=== PATIENT | female | born 1940 | race Caucasian/White ===

== ENCOUNTER 2016-11-26 07:38 | Emergency (ER) | payer MEDICARE ==
[~2016-11-26] VITALS: Ht 157.5 cm; Wt 69.9 kg
[~2016-11-26 07:38] MED LIST: 1-ME1LIQ PO; AMOX500T PO; LASI20TA PO; LATA0.00 EACH EYE; MOBI15TA PO; TIMO0.5S29 EACH EYE
[2016-11-26 07:40] VITALS: BP 165/69; PULSE 62; RESP 16; TEMP 97.8; O2SAT 100
[2016-11-26] MEDS ORDERED: LATA0.002 EACH EYE (08:02)
[2016-11-26] MEDS ORDERED: AMLO5TAB2 PO (08:02)
[2016-11-26] MEDS ORDERED: MELO-1 PO (08:02)
[2016-11-26] MEDS ORDERED: TIMO5SOL EACH EYE (08:02)
[2016-11-26 08:07] LABS: BLOOD, URINE SMALL (NEG); GLUCOSE,URINE NEG (NEG); KETONE, URINE NEG (NEG); NITRITE,URINE NEG (NEG); PH, URINE 5.5 (5.0-8.5)
[2016-11-26 08:15] LABS: METHOD OF COLLECTION CLEAN CATCH; URINE COLOR STRAW (YELLW/STRAW)
[2016-11-26] MEDS ORDERED: KETOROLAC TROMETHAMINE 30 MG/ML (IVP) VIAL IVP ONE (08:15)
[2016-11-26] MEDS ORDERED: SODIUM CHLORIDE 0.9% FLUSH 5 ML FLUSH IVF PRN (08:15)
[2016-11-26 08:16] LABS: BACTERIA, URINE FEW /hpf; COMMENT (UR) CULTURE INDICATED; CULTURE IF INDICATED CULTURE INDICATED; RENAL EPITHELIAL CELLS 0-5 /hpf
[2016-11-26 08:25] VITALS: O2SAT 100
[2016-11-26 08:32] LABS: AUTOMATED NEUTROPHIL # 3.6 TH/MM3 (1.8-7.7); BASOPHIL % 0.8 % (0.0-2.0); EOSINOPHIL # 0.2 TH/MM3 (0-0.4); HEMATOCRIT 39.4 % (35.0-46.0); HEMO FLAGS DIFF FINAL; LYMPH % 23.6 % (9.0-44.0); LYMPHOCYTE # 1.3 TH/MM3 (1.0-4.8); MEAN CELL VOLUME 86.1 FL (80.0-100.0); MEAN CORPUSCULAR HEMOGLOBIN 28.6 PG (27.0-34.0); MEAN CORPUSCULAR HGB CONC 33.3 % (32.0-36.0); MONO % 7.7 % (0.0-8.0); NEUT % 64.9 % (16.0-70.0); PLATELET COUNT 145 TH/MM3 (150-450); RED BLOOD COUNT 4.57 MIL/MM3 (4.00-5.30); RED CELL DISTRIBUTION WIDTH 13.9 % (11.6-17.2); WHITE BLOOD COUNT 5.5 TH/MM3 (4.0-11.0)
[2016-11-26 09:11] LABS: POTASSIUM 3.1 MEQ/L (3.5-5.1)
--- NOTE | 2016-11-26 09:20 | PD ---
HPI Chief Complaint: Complaint Time Seen by Provider: 08:09 Travel History International Travel<30 days: No Contact w/Intl Traveler<30days: No Traveled to known affect area: No History of Present Illness HPI Patient is a 76-year-old female presents emergency department for evaluation of dysuria and suprapubic pain. Patient states that this happened fairly suddenly last night. Patient states she has a history of bladder surgery but cannot expand further on her previous surgery. Patient denies any fever denies any nausea vomiting diarrhea vaginal bleeding or vaginal discharge. She states she' s had some mild abrasion her left hip and wonders if it's been bleeding. States happened to her multiple times in the past and it feels just like every other urinary tract infection she's ever had. PFSH Past Medical History Arthritis: Yes Asthma: No Autoimmune Disease: No Blood Disorders: No Anxiety: Yes Depression: No Heart Rhythm Problems: No Cancer: Yes (Melanoma face) Cardiovascular Problems: Yes (htn on meds, [place]?) High Cholesterol: No Chemotherapy: No Chest Pain: No Congestive Heart Failure: No COPD: No Cerebrovascular Accident: No Diabetes: No Diminished Hearing: No Endocrine: Yes Gastrointestinal Disorders: Yes (PAIN) GERD: No Glaucoma: Yes Genitourinary: No Headaches: No Hepatitis: No Hiatal Hernia: No Hypertension: Yes Immune Disorder: No Implanted Vascular Access Dvce: No Kidney Stones: No Musculoskeletal: No Neurologic: No Psychiatric: No Reproductive: No Respiratory: No Immunizations Current: Yes Migraines: No Myocardial Infarction: No Radiation Therapy: No Renal Failure: No Seizures: No Sickle Cell Disease: No Sleep Apnea: No Thyroid Disease: Yes Ulcer: Yes (As child) Tetanus Vaccination: > 5 Years Influenza Vaccination: Yes ?: Not Menopausal: Yes Past Surgical History Abdominal Surgery: Yes (Cyst removal) AICD: No Appendectomy: Yes Arteriovenous Shunt: No Cardiac Surgery: No Cholecystectomy: Yes Ear Surgery: No Endocrine Surgery: No Eye Surgery: No Genitourinary Surgery: Yes (Bladder) Gynecologic Surgery: Yes (HYSTERECTOMY) Hysterectomy: Yes Insulin Pump: No Joint Replacement: No Neurologic Surgery: No Oral Surgery: No Pacemaker: No Thoracic Surgery: No Tonsillectomy: Yes Other Surgery: Yes Social History Alcohol Use: No Tobacco Use: No Substance Use: No Allergies-Medications (Allergen,Severity, Reaction): Coded Allergies: Compazine (Verified Allergy, Severe, Joint Pain, 2/7/17) PER PT, NECK GOT VERY STIFF FOR SEVERAL HOURS AFTER BEING GIVEN COMPAZINE DURING PREVIOUS HOSPITALIZATION. "My head goes up in the air." Iohexol (OMNIPAQUE) (Unverified Allergy, Severe, PT NEEDS PREMED, 11/26/16) PT UNSURE, BUT THINKS THAT SHE BROKE OUT IN A RASH Reported Meds & Prescriptions Reported Meds & Active Scripts Active Keflex (Cephalexin) 500 Mg Cap 500 Mg PO Q6H Reported Latanoprost Opth Drops (Latanoprost) 0.005% Drops 1 Drop EACH EYE HS Refrigerate until opened. Timolol Opth Drops 0.25 % Soln 1 Drop EACH EYE BID Meloxicam 15 Mg Tab 10 Mg PO DAILY Amlodipine (Amlodipine Besylate) 5 Mg Tab 5 Mg PO DAILY Review of Systems Except as stated in HPI: all other systems reviewed are Neg Physical Exam Narrative GENERAL: Well-developed well-nourished no apparent distress. Appears older than stated age. SKIN: Warm and dry. HEAD: Atraumatic. Normocephalic. EYES: Pupils equal and round. No scleral icterus. No injection or drainage. ENT: No nasal bleeding or discharge. Mucous membranes pink and moist. NECK: Trachea midline. No JVD. CARDIOVASCULAR: Regular rate and rhythm. No murmur appreciated. RESPIRATORY: No accessory muscle use. Clear to auscultation. Breath sounds equal bilaterally. GASTROINTESTINAL: Abdomen soft, mildly tender in the suprapubic area. No rebound no percussive tenderness., nondistended. Hepatic and splenic margins not palpable. MUSCULOSKELETAL: No obvious deformities. No clubbing. No cyanosis. No edema. NEUROLOGICAL: Awake and alert. No obvious cranial nerve deficits. Motor grossly within normal limits. Normal speech. PSYCHIATRIC: Appropriate mood and affect; insight and judgment normal. Data Data Last Documented VS Vital Signs Date Time Temp Pulse Resp B/P Pulse Ox O2 Delivery O2 Flow Rate FiO2 11/26/16 10:05 73 16 145/78 100 Room Air 11/26/16 07:40 97.8 Orders Urinalysis - C+S If Indicated (11/26/16 07:42) Complete Blood Count With Diff (11/26/16 08:10) Comprehensive Metabolic Panel (11/26/16 08:10) Iv Access Insert/Monitor (11/26/16 08:10) Ecg Monitoring (11/26/16 08:10) Oximetry (11/26/16 08:10) Sodium Chloride 0.9% Flush (Ns Flush) (11/26/16 08:15) Electrocardiogram (11/26/16 08:10) Ketorolac Inj (Toradol Inj) (11/26/16 08:15) Urine Culture (11/26/16 07:50) Cephalexin (Keflex) (11/26/16 10:15) Calcium Carbonate (Oscal) (11/26/16 10:15) Labs Laboratory Tests Test 11/26/16 11/26/16 11/26/16 06:30 07:50 08:57 White Blood Count 5.5 TH/MM3 Red Blood Count 4.57 MIL/MM3 Hemoglobin 13.1 GM/DL Hematocrit 39.4 % Mean Corpuscular Volume 86.1 FL Mean Corpuscular Hemoglobin 28.6 PG Mean Corpuscular Hemoglobin 33.3 % Concent Red Cell Distribution Width 13.9 % Platelet Count 145 TH/MM3 Mean Platelet Volume 10.7 FL Neutrophils (%) (Auto) 64.9 % Lymphocytes (%) (Auto) 23.6 % Monocytes (%) (Auto) 7.7 % Eosinophils (%) (Auto) 3.0 % Basophils (%) (Auto) 0.8 % Neutrophils # (Auto) 3.6 TH/MM3 Lymphocytes # (Auto) 1.3 TH/MM3 Monocytes # (Auto) 0.4 TH/MM3 Eosinophils # (Auto) 0.2 TH/MM3 Basophils # (Auto) 0.0 TH/MM3 CBC Comment DIFF FINAL Differential Comment Urine Collection Type CLEAN CATCH Urine Color STRAW Urine Turbidity CLEAR Urine pH 5.5 Urine Specific [place] 1.003 Urine Protein NEG mg/dL Urine Glucose (UA) NEG mg/dL Urine Ketones NEG mg/dL Urine Occult Blood SMALL Urine Nitrite NEG Urine Bilirubin NEG Urine Leukocyte Esterase MOD Urine RBC 4-9 /hpf Urine WBC 25-49 /hpf Urine Renal Epithelial Cells 0-5 /hpf Urine Bacteria FEW /hpf Microscopic Urinalysis Comment CULTURE INDICATED Urine Collection Time 07:50 Sodium Level 148 MEQ/L Potassium Level 3.1 MEQ/L Chloride Level 118 MEQ/L Carbon Dioxide Level 21.5 MEQ/L Anion Gap 9 MEQ/L Blood Urea Nitrogen 18 MG/DL Creatinine 0.46 MG/DL Estimat Glomerular Filtration 132 ML/MIN Rate Random Glucose 75 MG/DL Calcium Level 7.0 MG/DL Protein Corrected Calcium 7.9 MG/DL Total Bilirubin 0.5 MG/DL Aspartate Amino Transf 9 U/L (AST/SGOT) Alanine Aminotransferase 9 U/L (ALT/SGPT) Alkaline Phosphatase 51 U/L Total Protein 5.4 GM/DL Albumin 2.4 GM/DL MDM Medical Decision Making Medical Screen Exam Complete: Yes Emergency Medical Condition: Yes Interpretation(s) EKG shows normal sinus rhythm with a normal axis and normal R-wave progression. No concerning ST T changes. This normal EKG. Differential Diagnosis UTI, cystitis, pyonephritis, acute abdomen unlikely. Narrative Course Patient 76-year-old female presents emergency Department with suprapubic pain and dysuria. She does have a history of bladder surgery but cannot tell me what kind of surgery. This reason basic lab works are sent. She also appears older than stated age. Basic labs including CBC and BMP are within normal limits. UA does show evidence of urinary tract infection. Review of her previous urine culture shows sensitivity to cephalosporins. We'll start on Keflex 500 mg 4 times a day 7 days. Discussed with her need follow-up with a primary care physician return to ED criteria. Diagnosis Primary Impression: UTI (urinary tract infection) Qualified Code: N30.00 - Acute cystitis without hematuria Med/Other Pt SpecificInfo: Prescription(s) given Scripts Cephalexin (Keflex)500 Mg [id number] Mg PO Q6H #7 CAP Ref 0 Prov:Daron Duncan MD 11/26/16 Disposition: 01 DISCHARGE HOME Condition: Stable Daron Duncan MD Nov 26, 2016 09:19
[2016-11-26 09:58] LABS: BICARBONATE 21.5 MEQ/L (21.0-32.0); CALCIUM-PROTEIN CORRECTED 7.9 MG/DL (8.5-10.1); TOTAL BILIRUBIN ADULT 0.5 MG/DL (0.2-1.0)
[2016-11-26 10:05] VITALS: BP 145/78; PULSE 73; RESP 16; O2SAT 100
[2016-11-26] MEDS ORDERED: CEPH-460 PO (10:08)
[2016-11-26] MEDS ORDERED: CALCIUM CARBONATE 1.25 GM (CA 500 MG) TAB PO ONE (10:15)
[2016-11-26] MEDS ORDERED: CEPHALEXIN MONOHYDRATE 500 MG CAP PO ONE (10:15)
--- NOTE | 2016-11-26 17:26 | EKG ---
Date Performed: 11/26/2016 Time Performed: 08:21:50 PTAGE: 76 years EKG: Regular supraventricular rhythm Since previous tracing, no significant change noted Borderl ine ECG PREVIOUS TRACING : 06/18/2016 11.48 DOCTOR: Tyrone Ortiz Interpretating Date/Time 11/26/2016 17:26:10
== END 2016-11-26 10:15 | disposition home or self-care (01) ==
LOC: PHED 07:38
DX: N30.00 Acute cystitis without hematuria (principal); B96.89 Other specified bacterial agents as the cause of diseases classified elsewhere; I10 Essential (primary) hypertension
CPT/HCPCS: 80053; 81001; 85025; 87077; 87086; 87186; 93005; 96374; 99283; J1885

== ENCOUNTER 2017-07-19 08:34 | Emergency (ER) | payer MEDICARE ==
[~2017-07-19] VITALS: Ht 157.5 cm; Wt 71.0 kg
[~2017-07-19 08:34] MED LIST changes: -1-ME1LIQ PO; +AMLO5TAB2 PO; -AMOX500T PO; +CEPH-460 PO; -LASI20TA PO; -LATA0.00 EACH EYE; +LATA0.002 EACH EYE; +MELO-1 PO; -MOBI15TA PO; -TIMO0.5S29 EACH EYE; +TIMO5SOL EACH EYE
[2017-07-19 08:39] VITALS: BP 151/97; PULSE 72; RESP 16; TEMP 97.9; O2SAT 100
[2017-07-19] MEDS ORDERED: TIMO0.5S30 EACH EYE (09:26)
--- NOTE | 2017-07-19 09:46 | PD ---
HPI Chief Complaint: Skin Problem Time Seen by Provider: 09:32 Travel History International Travel<30 days: No Contact w/Intl Traveler<30days: No Traveled to known affect area: No History of Present Illness HPI This 77-year-old female is complaining of swelling and redness of her ankles. His been going on for several days. She has not been short of breath. She does say that on Friday and Friday of this week she had some chest pain and felt a little bit short of breath than. She has a history of hypertension. She does take Lasix. She has not had fever or chills. She has had cellulitis in the past. She has some itching at these site of this redness. She says that this is not painful PFSH Past Medical History Arthritis: Yes Asthma: No Autoimmune Disease: No Blood Disorders: No Anxiety: Yes Depression: No Heart Rhythm Problems: No Cancer: Yes (Melanoma face) Cardiovascular Problems: Yes (htn on meds, [place]?) High Cholesterol: No Chemotherapy: No Chest Pain: No Congestive Heart Failure: No COPD: No Cerebrovascular Accident: No Diabetes: No Diminished Hearing: No Endocrine: Yes Gastrointestinal Disorders: Yes (PAIN) GERD: No Glaucoma: Yes Genitourinary: No Headaches: No Hepatitis: No Hiatal Hernia: No Heparin Induced Thrombocytopen: No Hypertension: Yes Immune Disorder: No Implanted Vascular Access Dvce: No Kidney Stones: No Musculoskeletal: No Neurologic: No Psychiatric: No Reproductive: No Respiratory: No Immunizations Current: Yes Migraines: No Myocardial Infarction: No Radiation Therapy: No Renal Failure: No Seizures: No Sickle Cell Disease: No Sleep Apnea: No Thyroid Disease: Yes Ulcer: Yes (As child) Menopausal: Yes Past Surgical History Abdominal Surgery: Yes (Cyst removal) AICD: No Appendectomy: Yes Arteriovenous Shunt: No Cardiac Surgery: No Cholecystectomy: Yes Ear Surgery: No Endocrine Surgery: No Eye Surgery: No Genitourinary Surgery: Yes (Bladder) Gynecologic Surgery: Yes (HYSTERECTOMY) Hysterectomy: Yes Insulin Pump: No Joint Replacement: No Neurologic Surgery: No Oral Surgery: No Pacemaker: No Thoracic Surgery: No Tonsillectomy: Yes Other Surgery: Yes Social History Alcohol Use: No Tobacco Use: No Substance Use: No Allergies-Medications (Allergen,Severity, Reaction): Coded Allergies: iohexol (Unverified Allergy, Severe, PT NEEDS PREMED, 07/19/17) PT UNSURE, BUT THINKS THAT SHE BROKE OUT IN A RASH prochlorperazine (Unverified Allergy, Severe, Joint Pain, 07/19/17) PER PT, NECK GOT VERY STIFF FOR SEVERAL HOURS AFTER BEING GIVEN COMPAZINE DURING PREVIOUS HOSPITALIZATION. "My head goes up in the air." Reported Meds & Prescriptions Reported Meds & Active Scripts Active Reported Timolol Opth Drops 0.5 % Soln 1 Drop EACH EYE BID Latanoprost Opth Drops (Latanoprost) 0.005% Drops 1 Drop EACH EYE HS Refrigerate until opened. Meloxicam 15 Mg Tab 10 Mg PO DAILY Amlodipine (Amlodipine Besylate) 5 Mg Tab 5 Mg PO DAILY Review of Systems General / Constitutional: No: Fever, Chills Eyes: No: Diploplia, Blurred Vision HENT: No: Headaches Cardiovascular: Positive: Chest Pain or Discomfort (a few days ago) Respiratory: No: Cough, Shortness of Breath Gastrointestinal: No: Vomiting, Diarrhea Genitourinary: No: Urgency, Frequency Musculoskeletal: No: Myalgias Skin: Positive Rash Hematologic/Lymphatic: No: Easy Bruising Physical Exam Narrative GENERAL: Well-developed female SKIN: Focused skin assessment warm/dry. There is some mild redness of both lower extremities. The right is greater than the left. There are a few fine macular lesions HEAD: Atraumatic. Normocephalic. EYES: Pupils equal and round. No scleral icterus. No injection or drainage. ENT: No nasal bleeding or discharge. Mucous membranes pink and moist. NECK: Trachea midline. No JVD. CARDIOVASCULAR: Regular rate and rhythm. No murmur appreciated. RESPIRATORY: No accessory muscle use. Clear to auscultation. Breath sounds equal bilaterally. GASTROINTESTINAL: Abdomen soft, non-tender, nondistended. Hepatic and splenic margins not palpable. MUSCULOSKELETAL: No obvious deformities. No clubbing. No cyanosis. Bilateral pedal edema NEUROLOGICAL: Awake and alert. No obvious cranial nerve deficits. Motor grossly within normal limits. Normal speech. PSYCHIATRIC: Appropriate mood and affect; insight and judgment normal. Data Data Last Documented VS Vital Signs Date Time Temp Pulse Resp B/P (MAP) Pulse Ox O2 Delivery O2 Flow Rate FiO2 07/19/17 08:39 97.9 72 16 151/97 (115) 100 Orders Orders Electrocardiogram (07/19/17 09:39) Complete Blood Count With Diff (07/19/17 09:39) Basic Metabolic Panel (Bmp) (07/19/17 09:39) Troponin I (07/19/17 09:39) B-Type Natriuretic Peptide (07/19/17 09:39) Chest, Single Ap (07/19/17 09:39) Labs Laboratory Tests Test 07/19/17 10:15 White Blood Count 5.0 TH/MM3 Red Blood Count 4.39 MIL/MM3 Hemoglobin 12.5 GM/DL Hematocrit 39.0 % Mean Corpuscular Volume 88.9 FL Mean Corpuscular Hemoglobin 28.6 PG Mean Corpuscular Hemoglobin Concent 32.2 % Red Cell Distribution Width 14.3 % Platelet Count 141 TH/MM3 Mean Platelet Volume 9.5 FL Neutrophils (%) (Auto) 62.7 % Lymphocytes (%) (Auto) 22.6 % Monocytes (%) (Auto) 11.2 % Eosinophils (%) (Auto) 2.9 % Basophils (%) (Auto) 0.6 % Neutrophils # (Auto) 3.2 TH/MM3 Lymphocytes # (Auto) 1.1 TH/MM3 Monocytes # (Auto) 0.6 TH/MM3 Eosinophils # (Auto) 0.1 TH/MM3 Basophils # (Auto) 0.0 TH/MM3 CBC Comment DIFF FINAL Differential Comment Blood Urea Nitrogen 29 MG/DL Creatinine 0.71 MG/DL Random Glucose 115 MG/DL Calcium Level 9.5 MG/DL Sodium Level 139 MEQ/L Potassium Level 4.2 MEQ/L Chloride Level 107 MEQ/L Carbon Dioxide Level 25.3 MEQ/L Anion Gap 7 MEQ/L Estimat Glomerular Filtration Rate 80 ML/MIN Troponin I LESS THAN 0.02 NG/ML B-Type Natriuretic Peptide 37 PG/ML [facility] Medical Decision Making Medical Screen Exam Complete: Yes Emergency Medical Condition: Yes Medical Record Reviewed: Yes Differential Diagnosis Differential includes CHF, cellulitis, allergic reaction Narrative Course Chest x-ray is negative. Her white count is at 5000. Potassium is normal.) Recommend that she take Lasix daily. She has a prescription she does take it sporadically. I will also put on Keflex for 7 days Diagnosis Primary Impression: Bilateral cellulitis of lower leg Additional Instructions: Take Lasix daily for 7 days. Scripts Cephalexin (Keflex) 500 Mg Capsule 500 MG PO Q6H for Infection for 10 Days, #40 CAP 0 Refills Prov: Vasquez Montiel MD 07/19/17 Disposition: 01 DISCHARGE HOME Condition: Critical Vasquez Montiel MD Jul 19, 2017 09:46
--- NOTE | 2017-07-19 10:08 | RADRPT ---
EXAM DATE/TIME: 07/19/2017 09:49 [facility] COMPARISON: CHEST SINGLE AP, June 18, 2016, 11:30. INDICATIONS : Chest pain. MEDICAL HISTORY : Hypertension. Thyroid disease. Melanoma. SURGICAL HISTORY : Appendectomy. Hysterectomy. Cholecystectomy. ENCOUNTER: Initial ACUITY: 1 day PAIN SCORE: 2/10 LOCATION: Bilateral chest FINDINGS: A single view of the chest demonstrates the lungs to be symmetrically aerated without evidence of mas s, infiltrate or effusion. The cardiomediastinal contours are unremarkable. Degenerative changes of the bilateral shoulders. CONCLUSION: No acute disease. Linette Hinton MD on July 19, 2017 at 10:07 Board Certified Radiologist. This report was verified electronically.
[2017-07-19 10:17] LABS: AUTOMATED NEUTROPHIL # 3.2 TH/MM3 (1.8-7.7); BASOPHIL % 0.6 % (0.0-2.0); EOSINOPHIL # 0.1 TH/MM3 (0-0.4); EOSINOPHIL % 2.9 % (0.0-4.0); HEMO FLAGS DIFF FINAL; LYMPH % 22.6 % (9.0-44.0); LYMPHOCYTE # 1.1 TH/MM3 (1.0-4.8); MEAN CELL VOLUME 88.9 FL (80.0-100.0); MEAN CORPUSCULAR HEMOGLOBIN 28.6 PG (27.0-34.0); MEAN CORPUSCULAR HGB CONC 32.2 % (32.0-36.0); MONO % 11.2 % (0.0-8.0); NEUT % 62.7 % (16.0-70.0); PLATELET COUNT 141 TH/MM3 (150-450); RED BLOOD COUNT 4.39 MIL/MM3 (4.00-5.30); RED CELL DISTRIBUTION WIDTH 14.3 % (11.6-17.2)
[2017-07-19 10:25] LABS: CHLORIDE 107 MEQ/L (98-107); POTASSIUM 4.2 MEQ/L (3.5-5.1); SODIUM (NA) 139 MEQ/L (136-145)
[2017-07-19 10:28] LABS: ANION GAP 7 MEQ/L (5-15); BICARBONATE 25.3 MEQ/L (21.0-32.0); BLOOD UREA NITROGEN 29 MG/DL (7-18)
[2017-07-19 10:31] LABS: GLOMERULAR FILTRATION RATE 80 ML/MIN (>89)
[2017-07-19 11:12] VITALS: BP_SYST 133; PULSE 65; RESP 16; O2SAT 99
[2017-07-19] MEDS ORDERED: CEPH-460 PO (11:14)
[2017-07-19] MEDS ORDERED: FURO1TAB60 PO (11:16)
--- NOTE | 2017-07-19 11:37 | EKG ---
Date Performed: 07/19/2017 Time Performed: 10:15:46 PTAGE: 77 years EKG: Sinus rhythm NORMAL ECG PREVIOUS TRACING : 11/26/2016 08.21 No significant change from previous tracing noted. DOCTOR: Vic Jones Interpretating Date/Time 07/19/2017 11:35:43
== END 2017-07-19 11:44 | disposition home or self-care (01) ==
LOC: PHED 08:34
DX: L03.115 Cellulitis of right lower limb (principal); L03.116 Cellulitis of left lower limb; I10 Essential (primary) hypertension; E07.9 Disorder of thyroid, unspecified; Z87.39 Personal history of other diseases of the musculoskeletal system and connective tissue; Z86.59 Personal history of other mental and behavioral disorders; Z85.828 Personal history of other malignant neoplasm of skin; Z86.79 Personal history of other diseases of the circulatory system; Z87.19 Personal history of other diseases of the digestive system; Z86.2 Personal history of diseases of the blood and blood-forming organs and certain disorders involving the immune mechanism
CPT/HCPCS: 71010; 80048; 83880; 84484; 85025; 93005; 99285

== ENCOUNTER 2017-09-09 07:33 | Emergency (ER) | payer MEDICARE ==
[~2017-09-09] VITALS: Ht 157.5 cm; Wt 74.0 kg
[~2017-09-09 07:33] MED LIST changes: +FURO1TAB60 PO; -MELO-1 PO; +MELO15TA20 PO; +TIMO0.5S30 EACH EYE; -TIMO5SOL EACH EYE
[2017-09-09 07:38] VITALS: BP 153/69; PULSE 75; RESP 16; TEMP 97.9; O2SAT 99
--- NOTE | 2017-09-09 08:11 | PD ---
HPI Chief Complaint: Edema Time Seen by Provider: 07:54 Travel History International Travel<30 days: No Contact w/Intl Traveler<30days: No Traveled to known affect area: No History of Present Illness HPI Patient is 77 year old female with itching/swelling and redness to bilateral lower extremities for the past few weeks. Patient had finished two courses of antibiotics one given here. Recently ran out of her lasix that her PCP put her on. Minimal pain in LE's. No recent travel, no blood clots in the past. No fevers. The patient is concerned because her son just of liver failure and she wants to make sure she doesn't have it either because she continues to have leg swelling. She states she is having some mild SOB as well. Denies any n/v/d/c, chest pain, weakness, fatigue. Symptoms moderate, for the last few weeks, gradually worsening, bilateral lower extremities. PFSH Past Medical History Arthritis: Yes Asthma: No Autoimmune Disease: No Blood Disorders: No Anxiety: Yes Depression: No Heart Rhythm Problems: No Cancer: Yes (Melanoma face) Cardiovascular Problems: Yes (htn on meds, [place]?) High Cholesterol: No Chemotherapy: No Chest Pain: No Congestive Heart Failure: No COPD: No Cerebrovascular Accident: No Diabetes: No Diminished Hearing: No Endocrine: Yes Gastrointestinal Disorders: Yes (PAIN) GERD: No Glaucoma: Yes Genitourinary: No Headaches: No Hepatitis: No Hiatal Hernia: No Heparin Induced Thrombocytopen: No Hypertension: Yes Immune Disorder: No Implanted Vascular Access Dvce: No Kidney Stones: No Musculoskeletal: No Neurologic: No Psychiatric: No Reproductive: No Respiratory: No Immunizations Current: Yes Migraines: No Myocardial Infarction: No Radiation Therapy: No Renal Failure: No Seizures: No Sickle Cell Disease: No Sleep Apnea: No Thyroid Disease: Yes Ulcer: Yes (As child) Tetanus Vaccination: < 5 Years Influenza Vaccination: No ?: Not Menopausal: Yes Past Surgical History Abdominal Surgery: Yes (Cyst removal) AICD: No Appendectomy: Yes Arteriovenous Shunt: No Cardiac Surgery: No Cholecystectomy: Yes Ear Surgery: No Endocrine Surgery: No Eye Surgery: No Genitourinary Surgery: Yes (Bladder) Gynecologic Surgery: Yes (HYSTERECTOMY) Hysterectomy: Yes Insulin Pump: No Joint Replacement: No Neurologic Surgery: No Oral Surgery: No Pacemaker: No Thoracic Surgery: No Tonsillectomy: Yes Other Surgery: Yes Social History Alcohol Use: No Tobacco Use: No Substance Use: No Allergies-Medications (Allergen,Severity, Reaction): Coded Allergies: iohexol (Unverified Allergy, Severe, PT NEEDS PREMED, 09/09/17) PT UNSURE, BUT THINKS THAT SHE BROKE OUT IN A RASH prochlorperazine (Unverified Allergy, Severe, Joint Pain, 09/09/17) PER PT, NECK GOT VERY STIFF FOR SEVERAL HOURS AFTER BEING GIVEN COMPAZINE DURING PREVIOUS HOSPITALIZATION. "My head goes up in the air." Reported Meds & Prescriptions Reported Meds & Active Scripts Active Bactrim DS (Sulfamethoxazole-Trimethoprim) 800-160 Mg Tab 1 Tab PO BID 7 Days Lasix (Furosemide) 40 Mg Tab 40 Mg PO DAILY 30 Days Reported Timolol Opth Drops 0.5 % Soln 1 Drop EACH EYE BID Latanoprost Opth Drops (Latanoprost) 0.005% Drops 1 Drop EACH EYE HS Refrigerate until opened. Meloxicam 15 Mg Tab 10 Mg PO DAILY Amlodipine (Amlodipine Besylate) 5 Mg Tab 5 Mg PO DAILY Review of Systems Except as stated in HPI: all other systems reviewed are Neg Physical Exam Narrative GENERAL: WD/WN in nad. Quite pleasant. SKIN: Warm and dry. Bilateral minimal erythema of lower extremities to middle of her lower limb, mostly anterior and medial. No erythema of the feet. Distally the erythema is limited by the malleoli. HEAD: Atraumatic. Normocephalic. EYES: Pupils equal and round. No scleral icterus. No injection or drainage. ENT: No nasal bleeding or discharge. Mucous membranes pink and moist. NECK: Trachea midline. No JVD. CARDIOVASCULAR: Regular rate and rhythm. RESPIRATORY: No accessory muscle use. Clear to auscultation. Breath sounds equal bilaterally. GASTROINTESTINAL: Abdomen soft, non-tender, nondistended. Hepatic and splenic margins not palpable. MUSCULOSKELETAL: Extremities without clubbing, cyanosis. There is 2+pitting edema in bilateral lower extremities. No obvious deformities. NEUROLOGICAL: Awake and alert. No obvious cranial nerve deficits. Motor grossly within normal limits. Five out of 5 muscle strength in the arms and legs. Normal speech. PSYCHIATRIC: Appropriate mood and affect; insight and judgment normal. Data Data Last Documented VS Vital Signs Date Time Temp Pulse Resp B/P (MAP) Pulse Ox O2 Delivery O2 Flow Rate FiO2 11/21/17 11:11 67 16 137/68 (91) 97 09/09/17 10:00 Room Air 09/09/17 07:38 97.9 Orders Orders Electrocardiogram (09/09/17 08:11) B-Type Natriuretic Peptide (09/09/17 08:11) Ckmb (Isoenzyme) Profile (09/09/17 08:11) Complete Blood Count With Diff (09/09/17 08:11) Comprehensive Metabolic Panel (09/09/17 08:11) Magnesium (Mg) (09/09/17 08:11) Prothrombin Time / Inr (Pt) (09/09/17 08:11) Act Partial Throm Time (Ptt) (09/09/17 08:11) Troponin I (09/09/17 08:11) Chest, Single Ap (09/09/17 08:11) Ecg Monitoring (09/09/17 08:11) Iv Access Insert/Monitor (09/09/17 08:11) Oximetry (09/09/17 08:11) Oxygen Administration (09/09/17 08:11) Sodium Chloride 0.9% Flush (Ns Flush) (09/09/17 08:15) Us Leg Venous Doppler Bilat (09/09/17 08:11) Ed Discharge Order (09/09/17 10:33) Labs Laboratory Tests Test 09/09/17 09:05 White Blood Count 6.2 TH/MM3 Red Blood Count 4.51 MIL/MM3 Hemoglobin 13.1 GM/DL Hematocrit 40.3 % Mean Corpuscular Volume 89.3 FL Mean Corpuscular Hemoglobin 29.0 PG Mean Corpuscular Hemoglobin Concent 32.5 % Red Cell Distribution Width 14.0 % Platelet Count 117 TH/MM3 Mean Platelet Volume 9.8 FL Neutrophils (%) (Auto) 66.2 % Lymphocytes (%) (Auto) 21.8 % Monocytes (%) (Auto) 8.0 % Eosinophils (%) (Auto) 2.8 % Basophils (%) (Auto) 1.2 % Neutrophils # (Auto) 4.1 TH/MM3 Lymphocytes # (Auto) 1.3 TH/MM3 Monocytes # (Auto) 0.5 TH/MM3 Eosinophils # (Auto) 0.2 TH/MM3 Basophils # (Auto) 0.1 TH/MM3 CBC Comment DIFF FINAL Differential Comment Prothrombin Time 10.8 SEC Prothromb Time International Ratio 1.0 RATIO Activated Partial Thromboplast Time 26.4 SEC Blood Urea Nitrogen 24 MG/DL Creatinine 0.71 MG/DL Random Glucose 90 MG/DL Total Protein 7.3 GM/DL Albumin 3.5 GM/DL Calcium Level 8.9 MG/DL Magnesium Level 2.0 MG/DL Alkaline Phosphatase 74 U/L Aspartate Amino Transf (AST/SGOT) 18 U/L Alanine Aminotransferase (ALT/SGPT) 20 U/L Total Bilirubin 0.5 MG/DL Sodium Level 141 MEQ/L Potassium Level 4.0 MEQ/L Chloride Level 109 MEQ/L Carbon Dioxide Level 24.4 MEQ/L Anion Gap 8 MEQ/L Estimat Glomerular Filtration Rate 80 ML/MIN Total Creatine Kinase 92 U/L Troponin I LESS THAN 0.02 NG/ML B-Type Natriuretic Peptide 13 PG/ML MDM Medical Decision Making Medical Screen Exam Complete: Yes Emergency Medical Condition: Yes Differential Diagnosis CHF unlikely, chronic venous stasis, electrolyte abnormality, cellulitis (mild) , dvt seems unlikely but needs exclusion. Narrative Course Patient roomed emergency department, labs are reassuring, DVT ultrasound negative. Last 24 hours Impressions Lower Extremity Ultrasound 09/09/17810 Signed Impressions: Service Date/Time: Saturday, September 09, 2017 08:23 - CONCLUSION: 1. No DVT. 2. Cota's cyst involving the right popliteal fossa. Ministerio Rachel Jr., MD Chest X-Ray 09/09/17810 Signed Impressions: Service Date/Time: Saturday, September 09, 2017 08:48 - CONCLUSION: Normal examination. Domenic Patel MD The patient has fairly mild cellulitis of the lower extremities, she is reassured and is stable for outpatient management. Will be placed on antibiotics. Discussed follow-up with her primary care physician and discussed return to ED criteria. Diagnosis Primary Impression: Pedal edema Additional Impression: Cellulitis of lower extremity Med/Other Pt SpecificInfo: Prescription(s) given Scripts Sulfamethoxazole-Trimethoprim (Bactrim DS) 800-160 Mg Tab 1 TAB PO BID for Infection for 7 Days, #14 TAB 0 Refills Prov: Daron Duncan MD 09/09/17 Furosemide (Lasix) 40 Mg Tab 40 MG PO DAILY for 30 Days, #30 TAB 0 Refills Prov: Daron Duncan MD 09/09/17 Disposition: 01 DISCHARGE HOME Condition: Stable Daron Duncan MD Sep 09, 2017 08:11
[2017-09-09] MEDS ORDERED: SODIUM CHLORIDE 0.9% FLUSH 10 ML FLUSH IVF PRN (08:15)
[2017-09-09 08:27] VITALS: RESP 18; O2SAT 99
--- NOTE | 2017-09-09 09:02 | RADRPT ---
EXAM DATE/TIME: 09/09/2017 08:48 [facility] COMPARISON: CHEST SINGLE AP, July 19, 2017, 9:49. INDICATIONS : Short of breath, bilateral lower extremity swelling. MEDICAL HISTORY : None. SURGICAL HISTORY : None. ENCOUNTER: Initial ACUITY: 2 days PAIN SCORE: 1/10 LOCATION: Bilateral chest FINDINGS: A single view of the chest demonstrates the lungs to be symmetrically aerated without evidence of mas s, infiltrate or effusion. The cardiomediastinal contours are unremarkable. Osseous structures are intact. CONCLUSION: Normal examination. Domenic Patel MD on September 09, 2017 at 9:00 Board Certified Radiologist. This report was verified electronically.
[2017-09-09 09:13] LABS: AUTOMATED NEUTROPHIL # 4.1 TH/MM3 (1.8-7.7); BASOPHIL # 0.1 TH/MM3 (0-0.2); BASOPHIL % 1.2 % (0.0-2.0); EOSINOPHIL # 0.2 TH/MM3 (0-0.4); EOSINOPHIL % 2.8 % (0.0-4.0); HEMATOCRIT 40.3 % (35.0-46.0); HEMO FLAGS DIFF FINAL; LYMPH % 21.8 % (9.0-44.0); LYMPHOCYTE # 1.3 TH/MM3 (1.0-4.8); MEAN CELL VOLUME 89.3 FL (80.0-100.0); MEAN CORPUSCULAR HGB CONC 32.5 % (32.0-36.0); NEUT % 66.2 % (16.0-70.0); PLATELET COUNT 117 TH/MM3 (150-450); RED BLOOD COUNT 4.51 MIL/MM3 (4.00-5.30); WHITE BLOOD COUNT 6.2 TH/MM3 (4.0-11.0)
[2017-09-09 09:22] LABS: APTT (PATIENT) 26.4 SEC (24.3-30.1); PROTHROMBIN TIME - PATIENT 10.8 SEC (9.8-11.6)
[2017-09-09 09:30] VITALS: BP 141/75; PULSE 67; RESP 16; O2SAT 98
--- NOTE | 2017-09-09 09:30 | RADRPT ---
EXAM DATE/TIME: 09/09/2017 08:23 [facility] COMPARISON: No previous studies available for comparison. INDICATIONS : Bilateral lower extremity swelling and redness. MEDICAL HISTORY : Hypertension. Thyroid disease. Glaucoma. Ulcer. Melanoma. Arthritis. SURGICAL HISTORY : Tonsillectomy.Hysterectomy. Cholecystectomy.Cyst removal. Rotator cuff repair. Appendectomy. ENCOUNTER: Initial ACUITY: >1 year PAIN SCORE: 0/10 LOCATION: Bilateral legs. TECHNIQUE: Venous ultrasound of the left and right leg was performed from the inguinal ligament to the proximal calf. Real-time, color Doppler and spectral tracing, compression and augmentation techniques were us ed. FINDINGS: RIGHT LEG: There is normal compressibility of the deep venous system from the inguinal region to the proximal ca lf. No echogenic clot is seen in the lumen of the common femoral, femoral, popliteal, and posterior tibial veins. There is a normal response of the venous system to proximal and distal augmentation an d respiration. A simple popliteal fossa cyst is seen measuring 4.6 x 2.1 x 2.0 cm. LEFT LEG: There is normal compressibility of the deep venous system from the inguinal region to the proximal ca lf. No echogenic clot is seen in the lumen of the common femoral, femoral, popliteal, and posterior tibial veins. There is a normal response of the venous system to proximal and distal augmentation an d respiration. CONCLUSION: 1. No DVT. 2. Cota's cyst involving the right popliteal fossa. Ministerio Rachel Jr., MD on September 09, 2017 at 9:13 Board Certified Radiologist. This report was verified electronically.
[2017-09-09 09:51] LABS: BICARBONATE 24.4 MEQ/L (21.0-32.0); BLOOD UREA NITROGEN 24 MG/DL (7-18)
[2017-09-09 09:54] LABS: ALT (GPT) 20 U/L (10-53); GLOMERULAR FILTRATION RATE 80 ML/MIN (>89)
[2017-09-09 09:56] LABS: TOTAL BILIRUBIN ADULT 0.5 MG/DL (0.2-1.0)
[2017-09-09 09:57] LABS: ALKALINE PHOSPHATASE 74 U/L (45-117)
[2017-09-09 09:58] LABS: CREATINE KINASE 92 U/L (26-192)
[2017-09-09 10:01] LABS: ANION GAP 8 MEQ/L (5-15); CHLORIDE 109 MEQ/L (98-107); SODIUM (NA) 141 MEQ/L (136-145)
[2017-09-09 10:09] LABS: AST (GOT) 18 U/L (15-37)
[2017-09-09] MEDS ORDERED: BACT800T5 PO (10:25)
[2017-09-09] MEDS ORDERED: FURO1TAB60 PO (10:25)
[2017-09-09 11:11] VITALS: BP 137/68
--- NOTE | 2017-09-09 19:05 | EKG ---
Date Performed: 09/09/2017 Time Performed: 08:25:37 PTAGE: 77 years EKG: Sinus rhythm MINIMAL ST DEPRESSION Since previous tracing, no significant change noted BORDERLINE ECG PREVIOUS TRACING : 07/19/2017 10.15 DOCTOR: Tavares Bey Interpretating Date/Time 09/09/2017 19:05:20
== END 2017-09-09 11:13 | disposition home or self-care (01) ==
LOC: PHED 07:33
DX: L03.115 Cellulitis of right lower limb (principal); L03.116 Cellulitis of left lower limb; M71.21 Synovial cyst of popliteal space [Baker], right knee; I10 Essential (primary) hypertension; Z79.899 Other long term (current) drug therapy
CPT/HCPCS: 71010; 80053; 82550; 83735; 83880; 84484; 85025; 85610; 85730; 93005; 93970; 99285

== ENCOUNTER 2017-11-26 10:19 | Emergency (ER) | payer MEDICARE ==
[~2017-11-26] VITALS: Ht 157.5 cm; Wt 71.0 kg
[~2017-11-26 10:19] MED LIST changes: +BACT800T5 PO; -CEPH-460 PO
[2017-11-26 10:23] VITALS: BP 142/64; PULSE 65; RESP 16; TEMP 97.7; O2SAT 97
--- NOTE | 2017-11-26 11:06 | PD ---
HPI Chief Complaint: Fall Time Seen by Provider: 10:56 Travel History International Travel<30 days: No Contact w/Intl Traveler<30days: No Traveled to known affect area: No History of Present Illness HPI This 77-year-old female had a fall and hit her head. She does not think she had a loss of consciousness. She has considerable amount of bruising of the forehead. She is not able to walk and her was helping her in the shower. She has physical therapy that comes to her house. She has a history of edema for over the legs for which she takes Lasix. She has no complaints except for the fall. He has no numbness tingling or paresthesias. She did bang her left knee PFSH Past Medical History Hx Anticoagulant Therapy: No Arthritis: Yes Asthma: No Autoimmune Disease: No Blood Disorders: No Anxiety: Yes Depression: No Heart Rhythm Problems: No Cancer: Yes (Melanoma face) Cardiovascular Problems: Yes (htn on meds, [place]?) High Cholesterol: No Chemotherapy: No Chest Pain: No Congestive Heart Failure: No COPD: No Cerebrovascular Accident: No Diabetes: No Diminished Hearing: No Endocrine: Yes Gastrointestinal Disorders: Yes (PAIN) GERD: No Glaucoma: Yes Genitourinary: No Headaches: No Hepatitis: No Hiatal Hernia: No Heparin Induced Thrombocytopen: No Hypertension: Yes Immune Disorder: No Implanted Vascular Access Dvce: No Kidney Stones: No Musculoskeletal: No Neurologic: No Psychiatric: No Reproductive: No Respiratory: No Immunizations Current: Yes Migraines: No Myocardial Infarction: No Radiation Therapy: No Renal Failure: No Seizures: No Sickle Cell Disease: No Sleep Apnea: No Thyroid Disease: Yes Ulcer: Yes (As child) Menopausal: Yes Past Surgical History Abdominal Surgery: Yes (Cyst removal) AICD: No Appendectomy: Yes Arteriovenous Shunt: No Cardiac Surgery: No Cholecystectomy: Yes Ear Surgery: No Endocrine Surgery: No Eye Surgery: No Genitourinary Surgery: Yes (Bladder) Gynecologic Surgery: Yes (HYSTERECTOMY) Hysterectomy: Yes Insulin Pump: No Joint Replacement: No Neurologic Surgery: No Oral Surgery: No Pacemaker: No Thoracic Surgery: No Tonsillectomy: Yes Other Surgery: Yes Social History Alcohol Use: No Tobacco Use: No Substance Use: No Allergies-Medications (Allergen,Severity, Reaction): Coded Allergies: iohexol (Unverified Allergy, Severe, PT NEEDS PREMED, 11/26/17) PT UNSURE, BUT THINKS THAT SHE BROKE OUT IN A RASH prochlorperazine (Unverified Allergy, Severe, Joint Pain, 11/26/17) PER PT, NECK GOT VERY STIFF FOR SEVERAL HOURS AFTER BEING GIVEN COMPAZINE DURING PREVIOUS HOSPITALIZATION. "My head goes up in the air." Reported Meds & Prescriptions Reported Meds & Active Scripts Active Bactrim DS (Sulfamethoxazole-Trimethoprim) 800-160 Mg Tab 1 Tab PO BID 7 Days Lasix (Furosemide) 40 Mg Tab 40 Mg PO DAILY 30 Days Reported Timolol Opth Drops 0.5 % Soln 1 Drop EACH EYE BID Latanoprost Opth Drops (Latanoprost) 0.005% Drops 1 Drop EACH EYE HS Refrigerate until opened. Meloxicam 15 Mg Tab 10 Mg PO DAILY Amlodipine (Amlodipine Besylate) 5 Mg Tab 5 Mg PO DAILY Review of Systems General / Constitutional: No: Fever, Chills Eyes: No: Diploplia HENT: No: Headaches Cardiovascular: Positive: Edema, No: Chest Pain or Discomfort, Palpitations Respiratory: No: Cough, Shortness of Breath Gastrointestinal: No: Nausea, Vomiting Genitourinary: No: Urgency, Frequency Musculoskeletal: No: Myalgias Skin: No Rash, No Itching Neurologic: Positive: Weakness Endocrine: No: Heat Intolerance, Cold Intolerance Hematologic/Lymphatic: No: Easy Bruising Physical Exam Narrative GENERAL: Well-developed female SKIN: Focused skin assessment warm/dry. HEAD:. Normocephalic. There is swelling and ecchymosis of the left side of the forehead EYES: Pupils equal and round. No scleral icterus. No injection or drainage. ENT: No nasal bleeding or discharge. Mucous membranes pink and moist. NECK: Trachea midline. No JVD. There is no midline tenderness of the neck CARDIOVASCULAR: Regular rate and rhythm. No murmur appreciated. RESPIRATORY: No accessory muscle use. Clear to auscultation. Breath sounds equal bilaterally. GASTROINTESTINAL: Abdomen soft, non-tender, nondistended. Hepatic and splenic margins not palpable. MUSCULOSKELETAL: No obvious deformities. No clubbing. No cyanosis. Bilateral pedal edema. NEUROLOGICAL: Awake and alert. No obvious cranial nerve deficits. Motor grossly within normal limits. Normal speech. PSYCHIATRIC: Appropriate mood and affect; insight and judgment normal. Data Data Last Documented VS Vital Signs Date Time Temp Pulse Resp B/P (MAP) Pulse Ox O2 Delivery O2 Flow Rate FiO2 11/26/17 10:23 97.7 65 16 142/64 (90) [address] Brain W/O Iv Contrast(Rout) (11/26/17 11:02) [facility] Medical Decision Making Medical Screen Exam Complete: Yes Emergency Medical Condition: Yes Medical Record Reviewed: Yes Differential Diagnosis Differential includes contusion, skull fracture, subdural Narrative Course CT scan of the head has been done and is read as showing a left frontal cephalhematoma otherwise negative. Diagnosis Primary Impression: Contusion of forehead Disposition: 01 DISCHARGE HOME Condition: Stable Vasquez Montiel MD Nov 26, 2017 11:06
--- NOTE | 2017-11-26 12:10 | RADRPT ---
EXAM DATE/TIME: 11/26/2017 11:31 [facility] COMPARISON: CT BRAIN W/O CONTRAST, June 18, 2016, 12:09. INDICATIONS : Trauma. Fell out of the shower and hit left frontal region. Left frontal contusion. RADIATION DOSE: 61.23 CTDIvol (mGy) MEDICAL HISTORY : Hypertension. SURGICAL HISTORY : Appendectomy. Cholecystectomy.Hysterectomy. ENCOUNTER: Initial ACUITY: 1 day PAIN SCALE: 0/10 LOCATION: Left frontal TECHNIQUE: Multiple contiguous axial images were obtained of the head. Using automated exposure control and adj ustment of the mA and/or kV according to patient size, radiation dose was kept as low as reasonably a chievable to obtain optimal diagnostic quality images. DICOM format image data is available electro nically for review and comparison. FINDINGS: CEREBRUM: The ventricles are normal for age. No evidence of midline shift, mass lesion, hemorrhage or acute in farction. No extra-axial fluid collections are seen. POSTERIOR FOSSA: The cerebellum and brainstem are intact. The 4th ventricle is midline. The cerebellopontine angle i s unremarkable. EXTRACRANIAL: The visualized portion of the orbits is intact. SKULL: The calvaria is intact. Left focal cephalhematoma No evidence of skull fracture. CONCLUSION: Left frontal cephalhematoma otherwise negative. Gianluca Clark MD FACR on November 26, 2017 at 12:07 Board Certified Radiologist. This report was verified electronically.
[2017-11-26] MEDS ORDERED: POTA10TA2 PO (12:37)
[2017-11-26] MEDS ORDERED: BLOOD PRESSURE PO (12:37)
[2017-11-26 12:45] VITALS: BP 141/68
== END 2017-11-26 12:54 | disposition home or self-care (01) ==
LOC: PHED 10:19
DX: S00.83XA Contusion of other part of head, initial encounter (principal); I10 Essential (primary) hypertension; F41.9 Anxiety disorder, unspecified; H40.9 Unspecified glaucoma; W19.XXXA Unspecified fall, initial encounter; Z85.820 Personal history of malignant melanoma of skin; Z88.8 Allergy status to other drugs, medicaments and biological substances; Z79.899 Other long term (current) drug therapy
CPT/HCPCS: 70450; 99284

== ENCOUNTER 2018-01-10 20:22 | Observation (INO) | payer MEDICARE ==
[~2018-01-10] VITALS: Ht 157.5 cm; Wt 75.0 kg
[~2018-01-10 20:22] MED LIST changes: -AMLO5TAB2 PO; -BACT800T5 PO; +BLOOD PRESSURE PO; +POTA10TA2 PO
[2018-01-10 20:31] VITALS: BP 119/79; PULSE 76; RESP 16; TEMP 98.6; O2SAT 100
[2018-01-10] MEDS ORDERED: LOSA50TA PO (20:31)
[2018-01-10] MEDS ORDERED: MORPHINE SULFATE 4 MG/ML INJ IM ONE (21:15)
[2018-01-10] MEDS ORDERED: ONDANSETRON ODT 4 MG TAB PO ONE (21:15)
--- NOTE | 2018-01-10 21:21 | PD ---
HPI Chief Complaint: Musculoskeletal Complaint Time Seen by Provider: 21:08 Travel History International Travel<30 days: No Contact w/Intl Traveler<30days: No Traveled to known affect area: No History of Present Illness HPI 77-year-old white female presents emergency department by EMS. The patient presents with complains of right hip and thigh pain. Patient has had chronic pain in her legs and has been going through home physical therapy. She states that she had a very vigorous episode of therapy yesterday. They made her stand without her walker for 3 minutes. She takes meloxicam for pain. Patient has a history of hypertension. She lives at home with her . She ambulates with a walker. She denies any trauma or fall. She states that she has decreased ability to move her right leg due to pain in her hip and thigh. Symptoms are moderate. Worse with movement. Some relief with remaining still. No sensory changes. PFSH Past Medical History Hx Anticoagulant Therapy: No Arthritis: Yes Asthma: No Autoimmune Disease: No Blood Disorders: No Anxiety: Yes Depression: No Heart Rhythm Problems: No Cancer: Yes (Melanoma face) Cardiovascular Problems: Yes High Cholesterol: No Chemotherapy: No Chest Pain: No Congestive Heart Failure: No COPD: No Cerebrovascular Accident: No Diabetes: No Diminished Hearing: No Endocrine: Yes Gastrointestinal Disorders: Yes (PAIN) GERD: No Glaucoma: Yes Genitourinary: No Headaches: No Hepatitis: No Hiatal Hernia: No Heparin Induced Thrombocytopen: No Hypertension: Yes Immune Disorder: No Implanted Vascular Access Dvce: No Kidney Stones: No Musculoskeletal: No Neurologic: No Psychiatric: No Reproductive: No Respiratory: No Immunizations Current: Yes Migraines: No Myocardial Infarction: No Radiation Therapy: No Renal Failure: No Seizures: No Sickle Cell Disease: No Sleep Apnea: No Thyroid Disease: Yes Ulcer: Yes (As child) Tetanus Vaccination: Unknown Influenza Vaccination: Yes Menopausal: Yes Past Surgical History Abdominal Surgery: Yes (Cyst removal) AICD: No Appendectomy: Yes Arteriovenous Shunt: No Cardiac Surgery: No Cholecystectomy: Yes Ear Surgery: No Endocrine Surgery: No Eye Surgery: No Genitourinary Surgery: Yes (Bladder) Gynecologic Surgery: Yes (HYSTERECTOMY) Hysterectomy: Yes Insulin Pump: No Joint Replacement: No Neurologic Surgery: No Oral Surgery: No Pacemaker: No Thoracic Surgery: No Tonsillectomy: Yes Other Surgery: Yes Social History Alcohol Use: No Tobacco Use: No Substance Use: No Allergies-Medications (Allergen,Severity, Reaction): Coded Allergies: iohexol (Unverified Allergy, Severe, PT NEEDS PREMED, 01/10/18) PT UNSURE, BUT THINKS THAT SHE BROKE OUT IN A RASH prochlorperazine (Unverified Allergy, Severe, Joint Pain, 01/10/18) PER PT, NECK GOT VERY STIFF FOR SEVERAL HOURS AFTER BEING GIVEN COMPAZINE DURING PREVIOUS HOSPITALIZATION. "My head goes up in the air." Reported Meds & Prescriptions Reported Meds & Active Scripts Active Lasix (Furosemide) 40 Mg Tab 40 Mg PO DAILY 30 Days Reported Losartan (Losartan Potassium) 50 Mg Tab 50 Mg PO DAILY Potassium Chloride ER (Potassium Chloride) 10 Meq Tab 20 Meq PO DAILY Timolol Opth Drops 0.5 % Soln 1 Drop EACH EYE BID Latanoprost Opth Drops (Latanoprost) 0.005% Drops 1 Drop EACH EYE HS Refrigerate until opened. Meloxicam 15 Mg Tab 10 Mg PO DAILY Review of Systems Except as stated in HPI: all other systems reviewed are Neg Physical Exam Narrative GENERAL: Well-developed, well-nourished in no apparent distress. Nontoxic appearing. HEAD: Normocephalic, atraumatic. EYES: Pupils equal round and reactive. Extraocular motions intact. No scleral icterus. No injection or drainage. ENT: Nose clear. Throat without erythema, tonsillar hypertrophy or exudate. Uvula midline. Airway patent. NECK: Trachea midline. Supple, nontender, moves head freely. No central bony tenderness or spasm. CARDIOVASCULAR: Regular rate and rhythm without murmurs, gallops, or rubs. RESPIRATORY: Clear to auscultation. Breath sounds equal bilaterally. No wheezes , rales, or rhonchi. GASTROINTESTINAL: Abdomen soft, non-tender, nondistended. No hepato-splenomegaly , or palpable masses. No guarding. EXTREMITIES: No clubbing, cyanosis. Patient has +1 pedal edema. Patient complains of pain in the right hip and anterior thigh with light palpation and movement of the leg. There is no erythema or warmth. No edema. No pain in the knee, ankle or foot. She has intact gross sensation and intact pulses. The patient is able to move her left leg without discomfort. She moves her upper extremities without discomfort. BACK: Nontender without deformity. No flank tenderness. NEUROLOGICAL: Awake, alert and oriented x 3 .Cranial nerves grossly intact. Motor and sensory grossly within normal limits. Normal speech. Data Data Last Documented VS Vital Signs Date Time Temp Pulse Resp B/P (MAP) Pulse Ox O2 Delivery O2 Flow Rate FiO2 01/10/18 22:51 74 16 149/63 (91) 99 01/10/18 20:31 98.6 Orders Orders Morphine Inj (Morphine Inj) (01/10/18 21:15) Ondansetron Odt (Zofran Odt) (01/10/18 21:15) Femur (Ap & Lat/2vws) (01/10/18 21:14) Pelvis, Ap Only (Routine) (01/10/18 21:14) Complete Blood Count With Diff (01/10/18 22:46) Comprehensive Metabolic Panel (01/10/18 22:46) Urinalysis - C+S If Indicated (01/10/18 22:46) Iv Access Insert/Monitor (01/10/18 22:46) Urine Culture (01/10/18 22:40) Cephalexin (Keflex) (01/11/18 00:15) Creatine Kinase (Cpk) (01/11/18 00:09) Admit Order (Ed Use Only) (01/11/18 ) Vital Signs (Adult) Q4H (01/11/18 00:11) Diet Npo (01/11/18 Breakfast) Activity Oob With Assistance (01/11/18 00:11) Notify Dr: Other (01/11/18 00:11) Labs Laboratory Tests Test 01/10/18 22:40 White Blood Count 6.9 TH/MM3 Red Blood Count 4.15 MIL/MM3 Hemoglobin 12.7 GM/DL Hematocrit 36.7 % Mean Corpuscular Volume 88.4 FL Mean Corpuscular Hemoglobin 30.7 PG Mean Corpuscular Hemoglobin Concent 34.8 % Red Cell Distribution Width 13.8 % Platelet Count 156 TH/MM3 Mean Platelet Volume 10.5 FL Neutrophils (%) (Auto) 69.2 % Lymphocytes (%) (Auto) 19.8 % Monocytes (%) (Auto) 8.5 % Eosinophils (%) (Auto) 2.0 % Basophils (%) (Auto) 0.5 % Neutrophils # (Auto) 4.8 TH/MM3 Lymphocytes # (Auto) 1.4 TH/MM3 Monocytes # (Auto) 0.6 TH/MM3 Eosinophils # (Auto) 0.1 TH/MM3 Basophils # (Auto) 0.0 TH/MM3 CBC Comment DIFF FINAL Differential Comment Urine Color LIGHT-YELLOW Urine Turbidity CLEAR Urine pH 7.0 Urine Specific [place] 1.007 Urine Protein NEG mg/dL Urine Glucose (UA) NEG mg/dL Urine Ketones NEG mg/dL Urine Occult Blood NEG Urine Nitrite NEG Urine Bilirubin NEG Urine Urobilinogen LESS THAN 2.0 MG/DL Urine Leukocyte Esterase LARGE Urine RBC 1 /hpf Urine WBC 9 /hpf Urine Squamous Epithelial Cells 1 /hpf Urine Bacteria RARE /hpf Microscopic Urinalysis Comment CULTURE INDICATED Blood Urea Nitrogen 43 MG/DL Creatinine 1.05 MG/DL Random Glucose 122 MG/DL Total Protein 7.6 GM/DL Albumin 3.6 GM/DL Calcium Level 9.7 MG/DL Alkaline Phosphatase 75 U/L Aspartate Amino Transf (AST/SGOT) 26 U/L Alanine Aminotransferase (ALT/SGPT) 19 U/L Total Bilirubin 0.5 MG/DL Sodium Level 139 MEQ/L Potassium Level 3.9 MEQ/L Chloride Level 99 MEQ/L Carbon Dioxide Level 30.6 MEQ/L Anion Gap 9 MEQ/L Estimat Glomerular Filtration Rate 51 ML/MIN [facility] Medical Decision Making Medical Screen Exam Complete: Yes Emergency Medical Condition: Yes Medical Record Reviewed: Yes Interpretation(s) Laboratory Tests Test 01/10/18 22:40 White Blood Count 6.9 TH/MM3 Red Blood Count 4.15 MIL/MM3 Hemoglobin 12.7 GM/DL Hematocrit 36.7 % Mean Corpuscular Volume 88.4 FL Mean Corpuscular Hemoglobin 30.7 PG Mean Corpuscular Hemoglobin Concent 34.8 % Red Cell Distribution Width 13.8 % Platelet Count 156 TH/MM3 Mean Platelet Volume 10.5 FL Neutrophils (%) (Auto) 69.2 % Lymphocytes (%) (Auto) 19.8 % Monocytes (%) (Auto) 8.5 % Eosinophils (%) (Auto) 2.0 % Basophils (%) (Auto) 0.5 % Neutrophils # (Auto) 4.8 TH/MM3 Lymphocytes # (Auto) 1.4 TH/MM3 Monocytes # (Auto) 0.6 TH/MM3 Eosinophils # (Auto) 0.1 TH/MM3 Basophils # (Auto) 0.0 TH/MM3 CBC Comment DIFF FINAL Differential Comment Urine Color LIGHT-YELLOW Urine Turbidity CLEAR Urine pH 7.0 Urine Specific [place] 1.007 Urine Protein NEG mg/dL Urine Glucose (UA) NEG mg/dL Urine Ketones NEG mg/dL Urine Occult Blood NEG Urine Nitrite NEG Urine Bilirubin NEG Urine Urobilinogen LESS THAN 2.0 MG/DL Urine Leukocyte Esterase LARGE Urine RBC 1 /hpf Urine WBC 9 /hpf Urine Squamous Epithelial Cells 1 /hpf Urine Bacteria RARE /hpf Microscopic Urinalysis Comment CULTURE INDICATED Blood Urea Nitrogen 43 MG/DL Creatinine 1.05 MG/DL Random Glucose 122 MG/DL Total Protein 7.6 GM/DL Albumin 3.6 GM/DL Calcium Level 9.7 MG/DL Alkaline Phosphatase 75 U/L Aspartate Amino Transf (AST/SGOT) 26 U/L Alanine Aminotransferase (ALT/SGPT) 19 U/L Total Bilirubin 0.5 MG/DL Sodium Level 139 MEQ/L Potassium Level 3.9 MEQ/L Chloride Level 99 MEQ/L Carbon Dioxide Level 30.6 MEQ/L Anion Gap 9 MEQ/L Estimat Glomerular Filtration Rate 51 ML/MIN Differential Diagnosis Differential diagnosis: Fracture, sprain, strain, overuse injury, tendinitis Narrative Course Patient was given morphine 4 mg IM and Zofran 4 mg p.o. We will obtain x-rays of her pelvis and right femur. There is no history of trauma. I suspect her pain is myofascial. We will attempt to ambulate her after her pain medication and x-ray. The patient has been attempted to ambulate without success. Both myself and to the nurses have tried to get the patient to stand and walk at bedside with a walker. She is very unstable and cannot ambulate. We will check routine laboratory tests and admit her for observation. I discussed this with case management who agrees. Patient's urine shows early UTI she is given Keflex 500 mg p.o. I have spoken with Dr. Weems who is agreed to admit the patient to observation Diagnosis Primary Impression: Intractable pain Additional Impressions: Inability to ambulate UTI Condition: Stable Benedicto Angel Jan 10, 2018 21:21
--- NOTE | 2018-01-10 21:59 | RADRPT ---
EXAM DATE/TIME: 01/10/2018 21:26 [facility] COMPARISON: No previous studies available for comparison. INDICATIONS : Right hip pain. MEDICAL HISTORY : Hypertension. SURGICAL HISTORY : Cholecystectomy. Hysterectomy. ENCOUNTER: Initial ACUITY: 1 day PAIN SCORE: 8/10 LOCATION: Pelvis FINDINGS: A single frontal view of the pelvis demonstrates no evidence of fracture. Mild degenerative changes are evident. The bony pelvic ring is intact. Bony mineralization is normal. The soft tissues are i ntact. CONCLUSION: Mild degenerative changes, no fracture Gianluca Clark MD FACR on January 10, 2018 at 21:53 Board Certified Radiologist. This report was verified electronically.
--- NOTE | 2018-01-10 21:59 | RADRPT ---
EXAM DATE/TIME: 01/10/2018 21:27 [facility] COMPARISON: No previous studies available for comparison. INDICATIONS : Right femur pain. No known trauma. MEDICAL HISTORY : Hypertension. SURGICAL HISTORY : Appendectomy. Hysterectomy. Cholecystectomy. ENCOUNTER: Initial ACUITY: 1 day PAIN SCORE: 6/10 LOCATION: Right femur FINDINGS: Two view examination of the right femur demonstrates no evidence of fracture or dislocation. Bony mi neralization is normal. The soft tissue structures are intact. Degenerative changes about the knee. CONCLUSION: Negative fracture. Degenerative changes about the knee. Gianluca Clark MD FACR on January 10, 2018 at 21:56 Board Certified Radiologist. This report was verified electronically.
[2018-01-10 22:51] VITALS: BP 149/63; PULSE 74; RESP 16; O2SAT 99
[2018-01-10 23:34] LABS: AUTOMATED NEUTROPHIL # 4.8 TH/MM3 (1.8-7.7); BACTERIA, URINE RARE /hpf; BASOPHIL % 0.5 % (0.0-2.0); BILIRUBIN, URINE NEG (NEG); BLOOD, URINE NEG (NEG); EOSINOPHIL # 0.1 TH/MM3 (0-0.4); GLUCOSE,URINE NEG (NEG); HEMATOCRIT 36.7 % (35.0-46.0); HEMOGLOBIN 12.7 GM/DL (11.6-15.3); KETONE, URINE NEG (NEG); LYMPH % 19.8 % (9.0-44.0); LYMPHOCYTE # 1.4 TH/MM3 (1.0-4.8); MEAN CELL VOLUME 88.4 FL (80.0-100.0); MEAN CORPUSCULAR HEMOGLOBIN 30.7 PG (27.0-34.0); MEAN CORPUSCULAR HGB CONC 34.8 % (32.0-36.0); MEAN PLATELET VOLUME 10.5 FL (7.0-11.0); MONO % 8.5 % (0.0-8.0); MONOCYTE # 0.6 TH/MM3 (0-0.9); NEUT % 69.2 % (16.0-70.0); NITRITE,URINE NEG (NEG); PLATELET COUNT 156 TH/MM3 (150-450); RED BLOOD COUNT 4.15 MIL/MM3 (4.00-5.30); RED CELL DISTRIBUTION WIDTH 13.8 % (11.6-17.2); SQUAMOUS EPITHELIAL CELL URINE 1 /hpf (0-5); URINE COLOR LIGHT-YELLOW (YELLW/STRAW); URINE LEUKOCYTE ESTERASE LARGE (NEG); WHITE BLOOD COUNT 6.9 TH/MM3 (4.0-11.0)
[2018-01-10 23:48] LABS: ALKALINE PHOSPHATASE 75 U/L (45-117); TOTAL BILIRUBIN ADULT 0.5 MG/DL (0.2-1.0); TOTAL PROTEIN 7.6 GM/DL (6.4-8.2)
[2018-01-10 23:58] LABS: ALBUMIN 3.6 GM/DL (3.4-5.0); ALT (GPT) 19 U/L (10-53); AST (GOT) 26 U/L (15-37); BICARBONATE 30.6 MEQ/L (21.0-32.0); BLOOD UREA NITROGEN 43 MG/DL (7-18); CALCIUM 9.7 MG/DL (8.5-10.1); CHLORIDE 99 MEQ/L (98-107); CREATININE 1.05 MG/DL (0.50-1.00); GLOMERULAR FILTRATION RATE 51 ML/MIN (>89); GLUCOSE,RANDOM 122 MG/DL (74-106); SODIUM (NA) 139 MEQ/L (136-145)
[2018-01-11] VITALS (8 sets, daily range): BP systolic 95–114; BP diastolic 52–59; PULSE 58–71; RESP 16–19; TEMP 96.2–98.6; O2SAT 96–99
[2018-01-11] MEDS ORDERED: ACETAMINOPHEN 325 MG TAB PO PRN (00:15)
[2018-01-11] MEDS ORDERED: CEPHALEXIN MONOHYDRATE 500 MG CAP PO ONE (00:15)
[2018-01-11] MEDS ORDERED: LACTULOSE SYRUP 20 GM/30 ML CUP PO PRN (00:15)
[2018-01-11] MEDS ORDERED: MAGNESIUM HYDROXIDE SUSP 30 ML CUP PO PRN (00:15)
[2018-01-11] MEDS ORDERED: BISACODYL 10 MG SUPP RECTAL PRN (00:15)
[2018-01-11] MEDS ORDERED: SENNOSIDES 8.6 MG TAB PO PRN (00:15)
[2018-01-11] MEDS ORDERED: SODIUM CHLORIDE 0.9% FLUSH 10 ML FLUSH IV FLUSH PRN (00:15)
[2018-01-11] MEDS ORDERED: ONDANSETRON HCL 4 MG/2 ML VIAL IVP PRN (00:15)
--- NOTE | 2018-01-11 00:39 | HHI.HP ---
[facility] Nyla Owens MD Admission Diagnosis Intractable pain, inability to ambulate Diagnoses: (1) Intractable pain Diagnosis: Principal (2) Gait instability Diagnosis: Principal (3) UTI (urinary tract infection) Diagnosis: Principal Travel History International Travel<30 Days: No Contact w/Intl Traveler <30 Da: No Traveled to Known Affected Are: No History of Present Illness This is a 77-year-old female with a PMH of Anxiety, Melanoma and HTN who was brought to the ER by EMS secondary to complaints of right hip pain. Patient states pain started approximately 1 month ago, currently undergoing physical therapy per her PCP. States that today she had rigorous physical therapy and has had significant right hip/leg pain since. Pain is constant, severe, 10/10, nonradiating, worse with movement and ambulation. Denies recent injury or fall. On arrival, BP 119/79, HR 76, O2 sat 100% RA, Afebrile. CBC unremarkable. Creatinine 1.05, previously 0.71 on 09/09/2017. UA positive UTI. Femur/pelvis X-ray with no acute fracture noted. While in ER, patient attempted ambulation however unable to ambulate due to severe pain and gait instability. Review of Systems Except as stated in HPI: all other systems reviewed are Neg ROS: 14 point review of systems otherwise negative. Past Family Social History Past Medical History PMH: Anxiety, Melanoma and HTN Past Surgical History PAST SURGICAL HISTORY: Cyst Removal, Appendectomy, Cholecystectomy, Hysterectomy , Tonsillectomy Allergies: Coded Allergies: iohexol (Unverified Allergy, Severe, PT NEEDS PREMED, 01/10/18) PT UNSURE, BUT THINKS THAT SHE BROKE OUT IN A RASH prochlorperazine (Unverified Allergy, Severe, Joint Pain, 01/10/18) PER PT, NECK GOT VERY STIFF FOR SEVERAL HOURS AFTER BEING GIVEN COMPAZINE DURING PREVIOUS HOSPITALIZATION. "My head goes up in the air." Family History PAST FAMILY HISTORY: Reviewed. No h/o DM or CAD Social History PAST SOCIAL HISTORY: Negative for alcohol, tobacco or drugs. Physical Exam Vital Signs Vital Signs Date Time Temp Pulse Resp B/P (MAP) Pulse Ox O2 Delivery O2 Flow Rate FiO2 01/10/18 22:51 74 16 149/63 (91) 99 01/10/18 20:31 98.6 76 16 119/79 (92) 100 Physical Exam PE: GENERAL: Elderly white female in moderate distress due to pain, tearful. HEENT: PERRLA, EOMI. No scleral icterus or conjunctival pallor. No lid lag or facial droop. CARDIOVASCULAR: Regular rate and rhythm. No obvious murmurs to auscultation. No chest tenderness to palpation. RESPIRATORY: No obvious rhonchi or wheezing. Clear to auscultation. Breath sounds equal bilaterally. GASTROINTESTINAL: Abdomen soft, non-tender, nondistended. BS normal. MUSCULOSKELETAL: Extremities without clubbing, cyanosis, or edema. Significant tenderness palpation right hip and thigh. No obvious deformity noted. Pulses intact. NEUROLOGICAL: Awake, alert and oriented x4. No focal neurologic deficits. Moving both upper and lower extremities spontaneously. Laboratory Laboratory Tests Test 01/10/18 22:40 White Blood Count 6.9 Red Blood Count 4.15 Hemoglobin 12.7 Hematocrit 36.7 Mean Corpuscular Volume 88.4 Mean Corpuscular Hemoglobin 30.7 Mean Corpuscular Hemoglobin Concent 34.8 Red Cell Distribution Width 13.8 Platelet Count 156 Mean Platelet Volume 10.5 Neutrophils (%) (Auto) 69.2 Lymphocytes (%) (Auto) 19.8 Monocytes (%) (Auto) 8.5 Eosinophils (%) (Auto) 2.0 Basophils (%) (Auto) 0.5 Neutrophils # (Auto) 4.8 Lymphocytes # (Auto) 1.4 Monocytes # (Auto) 0.6 Eosinophils # (Auto) 0.1 Basophils # (Auto) 0.0 CBC Comment DIFF FINAL Differential Comment Urine Color LIGHT-YELLOW Urine Turbidity CLEAR Urine pH 7.0 Urine Specific [place] 1.007 Urine Protein NEG Urine Glucose (UA) NEG Urine Ketones NEG Urine Occult Blood NEG Urine Nitrite NEG Urine Bilirubin NEG Urine Urobilinogen LESS THAN 2.0 Urine Leukocyte Esterase LARGE Urine RBC 1 Urine WBC 9 Urine Squamous Epithelial Cells 1 Urine Bacteria RARE Microscopic Urinalysis Comment CULTURE INDICATED Blood Urea Nitrogen 43 Creatinine 1.05 Random Glucose 122 Total Protein 7.6 Albumin 3.6 Calcium Level 9.7 Alkaline Phosphatase 75 Aspartate Amino Transf (AST/SGOT) 26 Alanine Aminotransferase (ALT/SGPT) 19 Total Bilirubin 0.5 Sodium Level 139 Potassium Level 3.9 Chloride Level 99 Carbon Dioxide Level 30.6 Anion Gap 9 Estimat Glomerular Filtration Rate 51 Date/Time Source Procedure Growth Status 01/10/18 22:40 Urine Clean Catch Urine Culture Pending Received Result Diagram: 01/10/18223901/10/182239 Caprini VTE Risk Assessment Caprini VTE Risk Assessment: No/Low Risk (score <= 1) Caprini Risk Assessment Model Point Value = 1 Point Value = 2 Point Value = 3 Point Value = 5 Age 41-60 Minor surgery BMI > 25 kg/m2 Swollen legs Varicose veins or History of unexplained or recurrent spontaneous Oral contraceptives or hormone replacement Sepsis (< 1 month) Serious lung disease, including pneumonia (< 1 month) Abnormal pulmonary function Acute myocardial infarction Congestive heart failure (< 1 month) History of inflammatory bowel disease Medical patient at bed rest Age 61-74 Arthroscopic surgery Major open surgery (> 45 min) Laparoscopic surgery (> 45 min) Malignancy Confined to bed (> 72 hours) Immobilizing plaster cast Central venous access Age >= 75 History of VTE Family history of VTE Factor V Leiden Prothrombin [id number] Lupus anticoagulant Anticardiolipin antibodies Elevated serum homocysteine Heparin-induced thrombocytopenia Other congenital or acquired thrombophilia Stroke (< 1 month) Elective arthroplasty Hip, pelvis, or leg fracture Acute spinal cord injury (< 1 month) Prophylaxis Regimen Total Risk Factor Score Risk Level Prophylaxis Regimen 0-1 Low Early ambulation 2 Moderate Order ONE of the following: *Sequential Compression Device (SCD) *Heparin 5000 units SQ BID 3-4 Higher Order ONE of the following medications: *Heparin 5000 units SQ TID *Enoxaparin/Lovenox 40 mg SQ daily (WT < 150 kg, CrCl > 30 mL/min) *Enoxaparin/Lovenox 30 mg SQ daily (WT < 150 kg, CrCl > 10-29 mL/min) *Enoxaparin/Lovenox 30 mg SQ BID (WT < 150 kg, CrCl > 30 mL/min) AND/OR *Sequential Compression Device (SCD) 5 or more Highest Order ONE of the following medications: *Heparin 5000 units SQ TID (Preferred with Epidurals) *Enoxaparin/Lovenox 40 mg SQ daily (WT < 150 kg, CrCl > 30 mL/min) *Enoxaparin/Lovenox 30 mg SQ daily (WT < 150 kg, CrCl > 10-29 mL/min) *Enoxaparin/Lovenox 30 mg SQ BID (WT < 150 kg, CrCl > 30 mL/min) AND *Sequential Compression Device (SCD) Assessment and Plan Problem List: (1) Intractable pain ICD Code: R52 - Pain, unspecified (2) UTI (urinary tract infection) ICD Code: N39.0 - Urinary tract infection, site not specified (3) Gait instability ICD Code: R26.81 - Unsteadiness on feet Assessment and Plan A/P: 1. Intractable Pain: c/o severe right hip/thigh pain x1 day, no injury/fall. Currently undergoing PT, states had rigorous physical therapy. Pelvis/Femur X- ray negative for acute fracture, images reviewed by me. Check CPK for possible rhabdo. Analgesics/antiemetics as needed. 2. Gait Instability: secondary to severe pain. Optimize pain control, PT for eval/tx 3. UTI: U/a w/ UTI, follow up cultures, IV Rocephin, IVF for hydration. 4. DVT Prophylaxis: SCD/Teds. 5. Social work for d/c planning as needed. 6. Case discussed w/ ER physician at length, labs/records/imaging reviewed by me. Jodie August MD Jan 11, 2018 00:39
[2018-01-11] MEDS: SODIUM CHLOR 0.9% 1000 ML INJ 1,000 ML IV SCH ×2 (00:51→10:00)
[2018-01-11] MEDS: MORPHINE SULFATE 2 MG/ML INJ IV PUSH PRN ×3 (01:45→14:08)
[2018-01-11] MEDS: FUROSEMIDE 40 MG TAB PO SCH (09:00)
[2018-01-11] MEDS: LOSARTAN 50 MG TAB PO SCH (09:00)
[2018-01-11] MEDS: SODIUM CHLORIDE 0.9% FLUSH 10 ML FLUSH IV FLUSH SCH ×2 (09:00→21:32)
[2018-01-11] MEDS: DOCUSATE SODIUM 50 MG/SENNA 8.6 MG TAB PO SCH ×2 (09:00→21:32)
[2018-01-11] MEDS: TIMOLOL MALEATE 0.5% OPHT SOLN 5 ML BTL EACH EYE SCH ×2 (09:55→21:32)
[2018-01-11] MEDS: MELOXICAM 15 MG TAB PO SCH (09:58)
--- NOTE | 2018-01-11 10:22 | HHI.PR ---
Subjective Remarks Follow up for right hip pain, osteoarthritis, UTI. The patient states she was working with physical therapy in her home on Tuesday 01/09, did a lot of strenuous exercises, then had worsening right hip pain on Friday. She denies any recent fall/injury. She states her last fall was in October and she had xrays at that time that were unremarkable. She states she was told she has osteoarthritis of the hip. She sees Dr. Elias neurology, has an upcoming appointment on 01/15. She also has seen [facility] but cannot recall the name of her physician. Currently her pain is improved compared to yesterday, pain level decreased from 10/10 to 7/10 today. She reports diffuse right lateral hip pain without radiation. She denies any pain with palpation, only with movements. Denies any fevers/chills. Denies any other medical complaints at this time. She does not feel ready for discharge. Objective Vitals Vital Signs Date Time Temp Pulse Resp B/P (MAP) Pulse Ox O2 Delivery O2 Flow Rate FiO2 01/11/18 08:00 98.6 65 16 114/57 (76) 98 01/11/18 06:09 18 01/11/18 04:20 98.4 67 16 112/59 (76) 97 01/11/18 02:52 98.1 71 16 108/54 (72) 99 01/10/18 22:51 74 16 149/63 (91) 99 01/10/18 20:31 98.6 76 16 119/79 (92) 100 Result Diagram: 01/10/18 2240 01/10/18 2240 Imaging 01/10/18 pelvis x-ray shows mild degenerative changes, no fracture. 01/10/18 right femur x-ray negative for fracture, degenerative changes about the knee. Objective Remarks GENERAL: Well-nourished, well-developed elderly female patient in [facility]. SKIN: Warm and dry. No rash. HEENT: Normocephalic. Atraumatic.Pupils equal and round. Mucous membranes pink and moist. CARDIOVASCULAR: Regular rate and rhythm. No murmur appreciated. RESPIRATORY: No accessory muscle use. Clear to auscultation. Breath sounds equal bilaterally. GASTROINTESTINAL: Abdomen soft, non-tender, nondistended. Normoactive bowel sounds x4. MUSCULOSKELETAL: No obvious deformities. 1+ BLE edema. Right hip nontender to palpation. Right hip pain upon active and passive ROM. Right hip flexion limited secondary to pain. NEUROLOGICAL: Awake and alert. No obvious cranial nerve deficits. Motor grossly within normal limits. 5/5 muscle strength in bilateral upper and lower extremities. Normal speech. PSYCHIATRIC: Appropriate mood and affect; insight and judgment normal. Medications and IVs Current Medications Medications (Trade) Dose Ordered Sig/Kemar Route Start Time Stop Time Status Last Admin Sodium Chloride 1,000 ml @ 100 mls/hr Q10H IV 01/11/18 00:11 01/11/18 10:00 (NS Flush) 2 ml UNSCH PRN IV FLUSH 01/11/18 00:15 (NS Flush) 2 ml BID IV FLUSH 01/11/18 09:00 (Zofran Inj) 4 mg Q6H PRN IVP 01/11/18 00:15 (Tylenol) 650 mg Q6H PRN PO 01/11/18 00:15 01/11/18 11:53 ([place] 5-325 Mg) 1 tab Q4H PRN PO 01/11/18 00:15 (Morphine Inj) 2 mg Q3H PRN IV PUSH 01/11/18 00:15 01/11/18 06:04 (Jayde-Colace) 1 tab BID PO 01/11/18 09:00 01/11/18 09:00 (Milk Of Magnesia Liq) 30 ml Q12H PRN PO 01/11/18 00:15 (Senokot) 17.2 mg Q12H PRN PO 01/11/18 00:15 (Dulcolax Supp) 10 mg DAILY PRN RECTAL 01/11/18 00:15 (Lactulose Liq) 30 ml DAILY PRN PO 01/11/18 00:15 (Lasix) 40 mg DAILY PO 01/11/18 09:00 (Xalatan 0.005% Opt Soln) 1 drop HS EACH EYE 01/11/18 21:00 (Cozaar) 50 mg DAILY PO 01/11/18 09:00 (Mobic) 15 mg DAILY PO 01/11/18 09:00 01/11/18 09:58 (Timoptic 0.5% Opt Soln) 1 drop BID EACH EYE 01/11/18 09:00 01/11/18 09:55 Ceftriaxone Sodium 1000 mg/ Sodium Chloride 100 ml @ 200 mls/hr Q24H IV 01/11/18 23:00 A/P Problem List: (1) Intractable pain ICD Code: R52 - Pain, unspecified (2) UTI (urinary tract infection) ICD Code: N39.0 - Urinary tract infection, site not specified (3) Gait instability ICD Code: R26.81 - Unsteadiness on feet Assessment and Plan 77-year-old female with a PMH of Anxiety, Melanoma and HTN who was brought to the ER by EMS secondary to complaints of right hip pain. Intractable R Hip Pain: c/o severe right hip/thigh pain x1 day, no injury/ fall. Currently undergoing PT, states had rigorous physical therapy on Friday, developed worsening pain on Wednesday 01/10 -Pelvis/Femur X-ray images reviewed, negative for acute fracture -CPK 165, no rhabdo. -Continue pain control with norco prn and IV morphine prn breakthrough pain -K-thermia/heating pad prn -pain improving Gait Instability: secondary to severe pain. -Optimize pain control -PT for eval/tx UTI: U/a w/ UTI -monitor urine culture -Continue IV Rocephin for now -S/p 2L IVF, will discontinue fluids Hypertension: chronic, BP soft -continue patient's losartan 50mg daily with hold parameters -monitor BP, adjust antihypertensives as needed Chronic Lower Extremity Edema: chronic -continue patient's lasix 40mg daily with KCl replacement -d/c IVF DVT Prophylaxis: SCD/Teds. Discharge Planning Pending further clinical improvement and pain control. PT recommending rehab. Case management to assist with discharge planning. Estefany Doherty PA-C Jan 11, 2018 10:22 am
--- NOTE | 2018-01-11 14:37 | HHI.FF ---
Face to Face Verification Diagnosis: (1) Osteoarthritis (2) HTN (hypertension) (3) UTI (urinary tract infection) (4) Intractable pain (5) Gait instability Physical Therapy Order: Evaluate and Treat, Improve ambulation, Strength and gait training Occupational Therapy Order: Evaluate and Treat, Improve ADL Home Health Nursing Order: Medical education Signs/symptoms of disease process Nursing assessment with vital signs I have seen patient Fallon Guerrero on 01/11/18. My clinical findings support the need for the requested home health care services because: Ltd mobility - disease progression Deconditioned w/ increased weakness Limited ability to care for self High risk of falls I certify that my clinical findings support that this patient is homebound because: Unsteady gait/balance Unsafe to leave home unassisted Unable to use public transportation Estefany Doherty PA-C Jan 11, 2018 14:37
[2018-01-11] MEDS: LATANOPROST 0.005% OPHT SOLN 2.5 ML BTL EACH EYE SCH (21:32)
[2018-01-11] MEDS: cefTRIAXone INJ 1,000 MG in SODIUM CHLORIDE 0.9% INJ 100 ML IV SCH (22:20)
[2018-01-12 00:05] VITALS: BP 108/60; PULSE 64; RESP 19; TEMP 97; O2SAT 98
[2018-01-12 04:19] LABS: BASOPHIL % 0.3 % (0.0-2.0); EOSINOPHIL # 0.2 TH/MM3 (0-0.4); EOSINOPHIL % 3.8 % (0.0-4.0); HEMATOCRIT 33.6 % (35.0-46.0); HEMOGLOBIN 11.3 GM/DL (11.6-15.3); LYMPH % 29.5 % (9.0-44.0); LYMPHOCYTE # 1.6 TH/MM3 (1.0-4.8); MEAN CELL VOLUME 88.5 FL (80.0-100.0); MEAN CORPUSCULAR HEMOGLOBIN 29.6 PG (27.0-34.0); MEAN CORPUSCULAR HGB CONC 33.5 % (32.0-36.0); MEAN PLATELET VOLUME 10.5 FL (7.0-11.0); MONOCYTE # 0.7 TH/MM3 (0-0.9); NEUT % 54.4 % (16.0-70.0); PLATELET COUNT 124 TH/MM3 (150-450); RED CELL DISTRIBUTION WIDTH 13.9 % (11.6-17.2); WHITE BLOOD COUNT 5.5 TH/MM3 (4.0-11.0)
[2018-01-12 04:51] LABS: ALBUMIN 2.8 GM/DL (3.4-5.0); ALKALINE PHOSPHATASE 61 U/L (45-117); ALT (GPT) 36 U/L (10-53); AST (GOT) 31 U/L (15-37); BLOOD UREA NITROGEN 31 MG/DL (7-18); CALCIUM 8.7 MG/DL (8.5-10.1); CHLORIDE 106 MEQ/L (98-107); CREATININE 0.88 MG/DL (0.50-1.00); GLOMERULAR FILTRATION RATE 62 ML/MIN (>89); GLUCOSE,RANDOM 91 MG/DL (74-106); SODIUM (NA) 141 MEQ/L (136-145); TOTAL BILIRUBIN ADULT 0.4 MG/DL (0.2-1.0); TOTAL PROTEIN 6.5 GM/DL (6.4-8.2)
[2018-01-12 08:57] VITALS: BP 132/62; PULSE 65; RESP 16; TEMP 98.7; O2SAT 97
--- NOTE | 2018-01-12 09:35 | HHI.PR ---
Subjective Remarks Follow up for right hip pain, osteoarthritis, possible UTI. The patient reports continued right lateral hip pain with radiation into the right lateral thigh down to the knee. She states she is still unable to ambulate secondary to the pain. She is worried about going home and not being able to ambulate to the bathroom. She also does not want to go to rehab, however then patient discussed with case management, requested shelter case manager talk with her , and she may consider rehab placement for a couple weeks. She denies any urinary symptoms including no dysuria, suprapubic pain, increased urinary frequency or urgency. She is tolerating oral intake. She feels slightly constipated, last BM 2 days ago, she is requesting prune juice. Objective Vitals Vital Signs Date Time Temp Pulse Resp B/P (MAP) Pulse Ox O2 Delivery O2 Flow Rate FiO2 01/12/18 08:57 98.7 65 16 132/62 (85) 97 01/12/18 00:05 97.0 64 19 108/60 (76) 98 01/11/18 19:35 96.2 63 19 110/58 (75) 98 01/11/18 16:40 58 16 95/52 (66) 96 01/11/18 15:21 18 01/11/18 14:04 63 112/56 (74) 97 01/11/18 14:00 18 01/11/18 12:00 97.8 58 16 99/53 (68) 98 01/11/18 10:49 60 109/54 (72) I/O 01/11/18 01/11/18 01/11/18 01/12/18 01/12/18 01/12/18 07:00 15:00 23:00 07:00 15:00 23:00 Intake Total 400 ml 100 ml Balance 400 ml 100 ml Intake IV Total 400 ml 100 ml # Voids 1 # Bowel Movements 0 Result Diagram: 01/12/18 0340 01/12/18 0340 Imaging Last Impressions Pelvis X-Ray 01/10/182113 Signed Impressions: Service Date/Time: Wednesday, January 10, 2018 21:26 - CONCLUSION: Mild degenerative changes, no fracture Gianluca Clark MD FACR Femur X-Ray 01/10/182113 Signed Impressions: Service Date/Time: Saturday, January 10, 2018 21:27 - CONCLUSION: Negative fracture. Degenerative changes about the knee. Gianluca Clark MD FACR Objective Remarks GENERAL: Well-nourished, well-developed elderly female patient in [facility]. SKIN: Warm and dry. No rash. HEENT: Normocephalic. Atraumatic.Pupils equal and round. Mucous membranes pink and moist. CARDIOVASCULAR: Regular rate and rhythm. No murmur appreciated. RESPIRATORY: No accessory muscle use. Clear to auscultation. Breath sounds equal bilaterally. GASTROINTESTINAL: Abdomen soft, non-tender, nondistended. Normoactive bowel sounds x4. MUSCULOSKELETAL: No obvious deformities. 1+ BLE edema. Right hip nontender to palpation. Right hip pain upon active and passive ROM. Right hip flexion limited secondary to pain. NEUROLOGICAL: Awake and alert. No obvious cranial nerve deficits. Motor grossly within normal limits. 5/5 muscle strength in bilateral upper and lower extremities. Normal speech. PSYCHIATRIC: Appropriate mood and affect; insight and judgment normal. Medications and IVs Current Medications Medications (Trade) Dose Ordered Sig/Kemar Route Start Time Stop Time Status Last Admin (NS Flush) 2 ml UNSCH PRN IV FLUSH 01/11/18 00:15 (NS Flush) 2 ml BID IV FLUSH 01/11/18 09:00 01/11/18 21:32 (Zofran Inj) 4 mg Q6H PRN IVP 01/11/18 00:15 (Tylenol) 650 mg Q6H PRN PO 01/11/18 00:15 01/11/18 11:53 ([place] 5-325 Mg) 1 tab Q4H PRN PO 01/11/18 00:15 (Morphine Inj) 2 mg Q3H PRN IV PUSH 01/11/18 00:15 01/11/18 14:08 (Jayde-Colace) 1 tab BID PO 01/11/18 09:00 01/11/18 21:32 (Milk Of Magnesia Liq) 30 ml Q12H PRN PO 01/11/18 00:15 (Senokot) 17.2 mg Q12H PRN PO 01/11/18 00:15 (Dulcolax Supp) 10 mg DAILY PRN RECTAL 01/11/18 00:15 (Lactulose Liq) 30 ml DAILY PRN PO 01/11/18 00:15 (Lasix) 40 mg DAILY PO 01/11/18 09:00 (Xalatan 0.005% Opth Soln) 1 drop HS EACH EYE 01/11/18 21:00 01/11/18 21:32 (Cozaar) 50 mg DAILY PO 01/11/18 09:00 (Mobic) 15 mg DAILY PO 01/11/18 09:00 01/11/18 09:58 (Timoptic 0.5% Opth Soln) 1 drop BID EACH EYE 01/11/18 09:00 01/11/18 21:32 Ceftriaxone Sodium 1000 mg/ Sodium Chloride 100 ml @ 200 mls/hr Q24H IV 01/11/18 23:00 01/11/18 22:20 A/P Problem List: (1) Intractable pain ICD Code: R52 - Pain, unspecified (2) UTI (urinary tract infection) ICD Code: N39.0 - Urinary tract infection, site not specified (3) Gait instability ICD Code: R26.81 - Unsteadiness on feet Assessment and Plan 77-year-old female with a PMH of Anxiety, Melanoma and HTN who was brought to the ER by EMS secondary to complaints of right hip pain. Intractable R Hip Pain: c/o severe right hip/thigh pain x1 day, no injury/ fall. Currently undergoing PT, states had rigorous physical therapy on Friday, developed worsening pain on Wednesday 01/10 -Pelvis/Femur X-ray images reviewed, negative for acute fracture -CPK 165, no rhabdo. -Continue pain control with norco prn and IV morphine prn breakthrough pain -K-thermia/heating pad prn -pain improving however still difficulty ambulating independently, PT recommending rehab -case management assisting with discharge planning, patient hesitant on agreeing to placement however admits she cannot ambulate and worried about going home Gait Instability: secondary to severe pain. -Optimize pain control -PT for eval/tx, recommending rehab as above Asymptomatic Bacteruria: U/a abnormal with large leuks. Patient without any urinary symptoms. She states she is told she has UTIs all the time but does not usually have symptoms. -urine culture with 10-50K mixed gram positive; likely contaminants -Given IV Rocephin x2, will discontinue abx with negative culture -S/p 2L IVF, discontinued fluids Hypertension: chronic, BP soft -continue patient's losartan 50mg daily with hold parameters -monitor BP, adjust antihypertensives as needed Chronic Lower Extremity Edema: chronic -continue patient's lasix 40mg daily with KCl replacement -d/c IVF Constipation: patient feels slightly constipated, last BM 2 days ago -patient requesting prune juice, states this usually works at home -at risk for opiate induced constipation, start on jayde-colace 2tabs po bid -constipation protocol meds as needed DVT Prophylaxis: SCD/Teds, Lovenox Discharge Planning PT recommending rehab. Case management to assist with discharge planning. 1630hrs: casino cage manager reports patient accepted to SNF. Will discharge. Discharge patient to SNF Condition on discharge: Improved Heart Healthy Diet as tolerated Ad [place] activity Rx written: [place] 5/325mg po q8h prn pain #12 Follow-up with primary care physician within 1 week Estefany Doherty PA-C Jan 12, 2018 09:35
[2018-01-12] MEDS: MELOXICAM 15 MG TAB PO SCH (11:20)
[2018-01-12] MEDS: SODIUM CHLORIDE 0.9% FLUSH 10 ML FLUSH IV FLUSH SCH ×2 (11:20→22:07)
[2018-01-12] MEDS: FUROSEMIDE 40 MG TAB PO SCH (11:20)
[2018-01-12] MEDS: LOSARTAN 50 MG TAB PO SCH (11:20)
[2018-01-12] MEDS: TIMOLOL MALEATE 0.5% OPHT SOLN 5 ML BTL EACH EYE SCH ×2 (11:21→22:07)
[2018-01-12 11:22] VITALS: BP 168/74; PULSE 76; RESP 18; TEMP 98.7; O2SAT 94
[2018-01-12] MEDS: ACETAMINOPHEN/HYDROcodone 325 MG/5 MG TAB PO PRN (15:21)
[2018-01-12 15:49] VITALS: BP 134/63; PULSE 65; RESP 16; TEMP 98.7; O2SAT 100
[2018-01-12] MEDS ORDERED: HYDR-3516 PO (16:33)
[2018-01-12] MEDS: MORPHINE SULFATE 2 MG/ML INJ IV PUSH PRN (18:24)
[2018-01-12 20:19] VITALS: BP 133/58; PULSE 65; RESP 15; TEMP 97.9; O2SAT 98
[2018-01-12] MEDS ORDERED: ENOXAPARIN SODIUM 40 MG/0.4 ML SYRINGE SQ SCH (21:00)
[2018-01-12] MEDS: DOCUSATE SODIUM 50 MG/SENNA 8.6 MG TAB PO SCH (22:07)
[2018-01-12] MEDS: LATANOPROST 0.005% OPHT SOLN 2.5 ML BTL EACH EYE SCH (22:07)
[2018-01-12] MEDS: cefTRIAXone INJ 1,000 MG in SODIUM CHLORIDE 0.9% INJ 100 ML IV SCH (22:08)
[2018-01-13] MEDS: ACETAMINOPHEN/HYDROcodone 325 MG/5 MG TAB PO PRN ×2 (02:34→10:15)
[2018-01-13 02:40] VITALS: BP 129/62; PULSE 58; RESP 16; TEMP 98.8; O2SAT 95
[2018-01-13] MEDS: MORPHINE SULFATE 2 MG/ML INJ IV PUSH PRN (04:04)
[2018-01-13 06:30] VITALS: BP 121/56; PULSE 60; RESP 16; TEMP 97.8; O2SAT 93
--- NOTE | 2018-01-13 07:59 | HHI.PR ---
Subjective Remarks Follow-up on patient with right hip pain, osteoarthritis. Patient seen and examined. Patient continues to complain of severe right-sided hip pain located in the groin and top of the right thigh. She is unable to bear any weight on the right leg. She denies any fever or chills. She denies any new medical complaints. Discussed with nursing staff, no acute issues noted. Objective Vitals Vital Signs Date Time Temp Pulse Resp B/P (MAP) Pulse Ox O2 Delivery O2 Flow Rate FiO2 01/13/18 06:30 97.8 60 16 121/56 (77) 93 01/13/18 02:40 98.8 58 16 129/62 (84) 95 01/12/18 20:19 97.9 65 15 133/58 (83) 98 01/12/18 15:49 98.7 65 16 134/63 (86) 100 01/12/18 11:22 98.7 76 18 168/74 (105) 94 01/12/18 08:57 98.7 65 16 132/62 (85) 97 I/O 01/12/18 01/12/18 01/12/18 01/13/18 01/13/18 01/13/18 06:59 14:59 22:59 06:59 14:59 22:59 Intake Total 100 ml 100 ml Output Total 700 ml Balance 100 ml -700 ml 100 ml Intake IV Total 100 ml 100 ml Output Urine Total 700 ml # Voids 1 # Bowel Movements 0 Result Diagram: 01/12/18 0340 01/12/18 0340 Imaging Last Impressions Pelvis X-Ray 01/10/182113 Signed Impressions: Service Date/Time: Wednesday, January 10, 2018 21:26 - CONCLUSION: Mild degenerative changes, no fracture Gianluca Clark MD FACR Femur X-Ray 01/10/182113 Signed Impressions: Service Date/Time: Wednesday, January 10, 2018 21:27 - CONCLUSION: Negative fracture. Degenerative changes about the knee. Gianluca Clark MD FACR Objective Remarks GENERAL: Well-nourished, well-developed elderly female patient in NAD. Awake and alert. SKIN: Warm and dry. No rash. HEENT: Normocephalic. Atraumatic. EOMI. Sclera anicteric. Mucous membranes pink and moist. CARDIOVASCULAR: Regular rate and rhythm. No murmur appreciated. RESPIRATORY: Nonlabored. Clear to auscultation. Breath sounds equal bilaterally. GASTROINTESTINAL: Abdomen soft, non-tender, nondistended. Normoactive bowel sounds x4. MUSCULOSKELETAL: No obvious deformities. Trace BLE edema. Right hip nontender to palpation. Right hip pain upon active and passive ROM. Increased hip pain with internal rotation. Right hip flexion limited secondary to pain. NEUROLOGICAL: Awake and alert. No obvious cranial nerve deficits. Able to move all extremities spontaneously. Nonfocal. Normal speech. PSYCHIATRIC: Appropriate mood and affect; insight and judgment normal. Medications and IVs Current Medications Medications (Trade) Dose Ordered Sig/Kemar Route Start Time Stop Time Status Last Admin (NS Flush) 2 ml UNSCH PRN IV FLUSH 01/11/18 00:15 (NS Flush) 2 ml BID IV FLUSH 01/11/18 09:00 01/12/18 22:07 (Zofran Inj) 4 mg Q6H PRN IVP 01/11/18 00:15 (Tylenol) 650 mg Q6H PRN PO 01/11/18 00:15 01/11/18 11:53 (Elon 5-325 Mg) 1 tab Q4H PRN PO 01/11/18 00:15 01/13/18 02:34 (Morphine Inj) 2 mg Q3H PRN IV PUSH 01/11/18 00:15 01/13/18 04:04 (Milk Of Magnesia Liq) 30 ml Q12H PRN PO 01/11/18 00:15 (Senokot) 17.2 mg Q12H PRN PO 01/11/18 00:15 01/12/18 22:13 (Dulcolax Supp) 10 mg DAILY PRN RECTAL 01/11/18 00:15 (Lactulose Liq) 30 ml DAILY PRN PO 01/11/18 00:15 (Lasix) 40 mg DAILY PO 01/11/18 09:00 01/12/18 11:20 (Xalatan 0.005% Opth Soln) 1 drop HS EACH EYE 01/11/18 21:00 01/12/18 22:07 (Cozaar) 50 mg DAILY PO 01/11/18 09:00 01/12/18 11:20 (Mobic) 15 mg DAILY PO 01/11/18 09:00 01/12/18 11:20 (Timoptic 0.5% Opth Soln) 1 drop BID EACH EYE 01/11/18 09:00 01/12/18 22:07 Ceftriaxone Sodium 1000 mg/ Sodium Chloride 100 ml @ 200 mls/hr Q24H IV 01/11/18 23:00 01/12/18 22:08 (Jayde-Colace) 2 tab BID PO 01/12/18 21:00 01/12/18 22:07 (Lovenox Inj) 40 mg HS SQ 01/12/18 21:00 01/12/18 22:07 A/P Problem List: (1) Intractable pain ICD Code: R52 - Pain, unspecified (2) UTI (urinary tract infection) ICD Code: N39.0 - Urinary tract infection, site not specified (3) Gait instability ICD Code: R26.81 - Unsteadiness on feet Assessment and Plan 77-year-old female with a PMH of Anxiety, Melanoma and HTN who was brought to the ER by EMS secondary to complaints of right hip pain. Patient discharged yesterday to SNF. Discharge held secondary to waiting for patient to be picked up for transport to facility. Intractable R Hip Pain: c/o severe right hip/thigh pain x1 day, no injury/ fall. Currently undergoing PT as outpatient, states had rigorous physical therapy on Tuesday 01/09, developed worsening pain on Wednesday 01/10 -Pelvis/Femur X-ray images reviewed, negative for acute fracture -CPK 165, no rhabdo. -Continue pain control with norco prn and IV morphine prn breakthrough pain -K-thermia/heating pad prn -pain improving however still difficulty ambulating independently, PT recommending rehab -case management assisting with discharge planning. Patient discharged yesterday to SNF. Patient to be picked up today for transportation to the [facility]. -Discussed with patient follow up with orthopedist as an outpatient Gait Instability: secondary to severe pain. -Optimize pain control -PT for eval/tx, recommending rehab as above -fall precautions Asymptomatic Bacteruria: U/a abnormal with large leuks. Patient without any urinary symptoms. She states she is told she has UTIs all the time but does not usually have symptoms. -urine culture with 10-50K mixed gram positive; likely contaminants -Given IV Rocephin x2, abx discontinued with negative culture -S/p 2L IVF, discontinued fluids Hypertension: chronic, BP soft -continue patient's losartan 50mg daily with hold parameters -monitor BP, adjust antihypertensives as needed Chronic Lower Extremity Edema: chronic -continue patient's lasix 40mg daily with KCl replacement -d/c IVF Constipation: patient feels slightly constipated, last BM 2 days ago -patient requesting prune juice, states this usually works at home -at risk for opiate induced constipation, start on jayde-colace 2tabs po bid, continue -add Miralax 17gm -constipation protocol meds as needed DVT Prophylaxis: SCD/Teds, Lovenox Discharge Planning Patient discharged yesterday to SNF facility. She is to be picked up for transportation to [facility] later today. Alyssa Dhillon Jan 13, 2018 07:59
[2018-01-13 08:18] VITALS: BP 131/63; PULSE 64; RESP 16; TEMP 98.3; O2SAT 97
[2018-01-13] MEDS: SODIUM CHLORIDE 0.9% FLUSH 10 ML FLUSH IV FLUSH SCH (08:41)
[2018-01-13] MEDS: MELOXICAM 15 MG TAB PO SCH (08:41)
[2018-01-13] MEDS: LOSARTAN 50 MG TAB PO SCH (08:41)
[2018-01-13] MEDS: TIMOLOL MALEATE 0.5% OPHT SOLN 5 ML BTL EACH EYE SCH (08:41)
[2018-01-13] MEDS: DOCUSATE SODIUM 50 MG/SENNA 8.6 MG TAB PO SCH (08:41)
[2018-01-13] MEDS: FUROSEMIDE 40 MG TAB PO SCH (08:41)
[2018-01-13] MEDS ORDERED: POLYETHYLENE GLYCOL 17 GM PKG PO ONE (11:15)
== END 2018-01-13 11:37 ==
LOC: NEPD 20:22 → NEDA 01-11 00:13 → NEPHCDU 01-11 02:10
PROVIDERS: ADMIT Internal Medicine; ATTEND Internal Medicine
DX: M25.551 Pain in right hip (principal); M79.651 Pain in right thigh; N39.0 Urinary tract infection, site not specified; R26.81 Unsteadiness on feet; R60.0 Localized edema; K59.00 Constipation, unspecified; I10 Essential (primary) hypertension; F41.9 Anxiety disorder, unspecified; H40.9 Unspecified glaucoma; M16.10 Unilateral primary osteoarthritis, unspecified hip; Z85.820 Personal history of malignant melanoma of skin
CPT/HCPCS: 72170; 73552; 80053; 81001; 82550; 85025; 87086; 96361; 96365; 96366; 96372; 96375; 96376; 97163; 99285; G0378; J0696; J1650; J2270; J7030